=== PATIENT | male | born 1975 | race African-American/Black ===

== ENCOUNTER 2023-10-07 23:04 | Emergency (ER) | payer OTHER, SELFPAY ==
--- NOTE | ~2023-10-07 | CT_ITS ---
EXAMINATION: CT soft tissue neck w con DATE: 10/08/2023 00:32 INDICATION: Evaluate for abscess. Neck pain. TECHNIQUE: Computed tomography (CT) of the neck was performed with 75 cc Omnipaque 350 intravenous co ntrast. The dose-length product was 554.34 mGy-cm. Automated exposure control and iterative reconstru ction technique were employed. COMPARISON: None FINDINGS: Lung bases are unremarkable. No lymphadenopathy. No evidence for abscess. Mucosal and parap haryngeal spaces are normal. Thyroid gland is normal. No abnormality of the nasopharynx or hypopharyn x. No airway narrowing. Moderate cervical spondylosis. No intracranial abnormality is seen. Mildly pr ominent submental lymph nodes, likely reactive. IMPRESSION: 1. No acute abnormality of the neck soft tissues. No evidence for abscess or airway narrowing. Reviewed, dictated and finalized at location A. IMPRESSION: 1. No acute abnormality of the neck soft tissues. No evidence for abscess or ai rway narrowing.
[2023-10-07 23:09] VITALS: BP 167/76; PULSE 77; RESP 19; TEMP 36.4; O2SAT 99
--- NOTE | 2023-10-07 23:37 | ED.GENADULT ---
HPI - General Adult General Chief complaint: Unspecified Stated complaint: not feeling good , trouble swallowing for 3 days Time Seen by Provider: 10/07/23 23:24 History of Present Illness HPI narrative: patient 48-year-old gentleman presents emergency department with chief complaint of sore throat. The patient reports that but had some difficulty with swallowing for the last several days and has a fullness feeling in his throat particularly when he is laying down patient reports he has been seen by his primary care provider and was started on amoxicillin the patient states that it has not gotten better. The patient reports that he is still able to handle his oral secretions denies stridor Related Data Allergies Allergy/AdvReac Type Severity Reaction Status Date / Time shellfish derived Allergy Anaphylaxis Verified 10/07/23 23:57 Review of Systems Review of Systems: A 10 system review of systems was completed on the patient and is negative except for what is stated in the HPI. Nursing and ancillary documentation was reviewed. Exam Narrative: GENERAL: Well-appearing, well-nourished, and in no acute distress. HEAD: Normocephalic, atraumatic. EYES: PERRLA and EOMI. ENT: Nares clear, no rhinorrhea or epistaxis. Mucous membranes moist. NECK: Supple. CHEST: Clear to auscultation. No respiratory distress. HEART: Regular rate and rhythm. No murmur heard. Normal peripheral pulses. ABDOMEN: Soft, nontender, nondistended, normal active bowel sounds. EXTREMITIES: Normal range of motion. No edema. SKIN: Warm, dry, no rash. NEURO: No focal deficits. Alert and oriented x3. PSYCH: Normal mood and affect. Course Vital Signs Vital signs: Vital Signs Temperature 36.4 C L 10/07/23 23:09 Pulse Rate 77 10/07/23 23:09 Respiratory Rate 19 10/07/23 23:09 Blood Pressure 167/76 H 10/07/23 23:09 Pulse Oximetry 99 10/07/23 23:09 Oxygen Delivery Room Air 10/07/23 23:09 Temperature 36.4 C L 10/07/23 23:09 Pulse Rate 77 10/07/23 23:09 Respiratory Rate 19 10/07/23 23:09 Blood Pressure 167/76 H 10/07/23 23:09 Pulse Oximetry 99 10/07/23 23:09 Oxygen Delivery Room Air 10/07/23 23:09 Medical Decision Making [facility] Narrative Medical decision making narrative: Differential diagnosis includes pharyngitis, retropharyngeal abscess, esophageal obstruction strep was negative laboratory studies were within normal limits. CT scan of the soft tissues of the neck showed no acute abnormality the patient was given a dose Decadron in the emergency department and discharged home on a pulse steroids Vital Signs Vital Signs: Vital Signs Temperature 36.4 C L 10/07/23 23:09 Pulse Rate 77 10/07/23 23:09 Respiratory Rate 19 10/07/23 23:09 Blood Pressure 167/76 H 10/07/23 23:09 Pulse Oximetry 99 10/07/23 23:09 Oxygen Delivery Room Air 10/07/23 23:09 Temperature 36.4 C L 10/07/23 23:09 Pulse Rate 77 10/07/23 23:09 Respiratory Rate 19 10/07/23 23:09 Blood Pressure 167/76 H 10/07/23 23:09 Pulse Oximetry 99 10/07/23 23:09 Oxygen Delivery Room Air 10/07/23 23:09 Lab Data 10/07/23 23:49 10/07/23 23:50 Labs: Lab Results 10/07/23 10/07/23 10/07/23 Range/Units 23:48 23:49 23:50 WBC 4.4 L (4.5-10.0) K/mm3 RBC 5.59 (4.6-6.20) M/mm3 Hgb 16.3 (14.0-18.0) g/dL Hct 47.9 (42.0-52.0) % MCV 85.7 (80-100) fl MCH 29.2 (26-34) pg MCHC 34.0 (32-36) g/dl RDW 12.9 (11.5-14.5) % Plt Count 255 (150-375) k/mm3 MPV 9.9 (7.4-10.4) fl Immature Gran % (Auto) 0.2 (0-0.5) % Neut % (Auto) 54.5 (45.5-73.1) % Lymph % (Auto) 34.9 (18.3-44.2) % Nicol[place] % (Auto) 9.3 H (2.6-8.5) % Eos % (Auto) 0.9 (0-4.4) % Baso % (Auto) 0.2 (0.2-1.2) % Lymph # (Auto) 1.53 (0.9-3.2) K/mm3 Nicol[place] # (Auto) 0.4 (0.1-0.6) K/mm3 Eos # (Auto) 0.0 (0-0.3) K/mm3 Baso # (Auto) 0.0
[2023-10-07 23:55] LABS: Basophils Percent Auto 0.2 % (0.2-1.2); Eosinophils Percent Auto 0.9 % (0-4.4); Hematocrit 47.9 % (42.0-52.0); Hemoglobin 16.3 g/dL (14.0-18.0); Immature Granulocyte Absolute 0.01 K/mm3 (0.00-0.031); Immature Granulocyte Percent A 0.2 % (0-0.5); Lymphocytes Absolute Auto 1.53 K/mm3 (0.9-3.2); Lymphocytes Percent Auto 34.9 % (18.3-44.2); Mean Corpuscular Hemoglobin 29.2 pg (26-34); Mean Corpuscular Volume 85.7 fl (80-100); Mean Platelet Volume 9.9 fl (7.4-10.4); Monocytes Absolute Auto 0.4 K/mm3 (0.1-0.6); Monocytes Percent Auto 9.3 % (2.6-8.5); Neutrophils Absolute Auto 2.4 K/mm3 (1.3-6.7); Neutrophils Percent Auto 54.5 % (45.5-73.1); Platelet Count Result 255 k/mm3 (150-375); Red Blood Count 5.59 M/mm3 (4.6-6.20); Red Cell Distribution Width 12.9 % (11.5-14.5); White Blood Count 4.4 K/mm3 (4.5-10.0)
[2023-10-08 00:06] LABS: Alanine Aminotransferase 16 U/L (6-50); Albumin Level 4.8 g/dL (3.5-5.1); Alkaline Phosphatase 70 U/L (38-126); Anion Gap 10 mmol/L (4-12); Aspartate Amino Transferase 26 U/L (17-59); Bilirubin,Total 1.1 mg/dL (0.2-1.3); Blood Urea Nitrogen 17 mg/dL (9-20); Calcium 9.8 mg/dL (8.4-10.2); Carbon Dioxide 22 mmol/L (22-30); Chloride 109 mmol/L (98-107); Estimated CRCL calculation 77 ml/min; Estimated Glomerular Filt Rate > 60; Glucose 89 mg/dL (65-110); Potassium 3.7 mmol/L (3.4-5.0); Sodium 141 mmol/L (137-145)
[2023-10-08 00:19] LABS: Strep Group A RT-PCR NOT DETECTED (Negative)
[2023-10-08 00:30] LABS: Influenza A QL RT-PCR Negative (Negative); Influenza B QL RT-PCR Negative (Negative); RSV RNA, RT-PCR Negative (Negative); SARS-CoV-2 RNA PCR Negative (Negative)
[2023-10-08] MEDS: dexAMETHasone SOD PHOS INJ 10 MG/ML 1 ML VIAL IV PUSH (01:49)
[2023-10-08 01:55] VITALS: BP 135/74; PULSE 57; RESP 15; O2SAT 100
== END 2023-10-08 01:57 | disposition home or self-care (01) ==
PROVIDERS: Emergency Provider Emergency Medicine
DX: J02.9 Acute pharyngitis, unspecified (principal); Z20.822 Contact with and (suspected) exposure to COVID-19
CPT/HCPCS: 36415; 70491; 80053; 85025; 87637; 87651; 96374; 99284; J1100; Q9967

== ENCOUNTER 2023-10-08 20:39 | Emergency (ER) | payer OTHER, SELFPAY ==
[2023-10-08 20:54] VITALS: BP 154/89; PULSE 88; RESP 13; TEMP 37; O2SAT 98
--- NOTE | 2023-10-08 21:16 | ED.RECABL ---
HPI - Recheck/Abnormal Lab/Rx General Chief Complaint: Recheck/Abnormal Lab/Rx Stated Complaint: HTN Source: patient Mode of arrival: ambulatory Limitations: no limitations History of Present Illness HPI narrative: This is a 48-year-old male who presents to the ED for chief complaint of high blood pressure. Reports that he has been taking his blood pressure intermittently home. He was worried because the top number was something like 150. He is here because he wants to make sure that he is not going to due to high blood pressure. Reports that he did have a little bit of shakiness and started steroids last night for sore throat. Denies any further complaints. Related Data Allergies Allergy/AdvReac Type Severity Reaction Status Date / Time shellfish derived Allergy Anaphylaxis Verified 10/07/23 23:57 Review of Systems Review of Systems: All systems as dictated in HPI Exam Narrative: GENERAL: Well-appearing, well-nourished, and in no acute distress. HEAD: Normocephalic, atraumatic. EYES: PERRLA and EOMI. ENT: Nares clear, no rhinorrhea or epistaxis. Mucous membranes moist. Oropharynx without tonsillar hypertrophy exudate or other lesions. NECK: Supple. No adenopathy or masses. CHEST: No respiratory distress. Clear to auscultation. No wheezes rales or rhonchi HEART: Regular rate and rhythm. No murmur heard. Normal peripheral pulses. ABDOMEN: Soft, nontender, nondistended, normal active bowel sounds. MSK: Normal range of motion. No edema. SKIN: Warm, dry, no rash. NEURO: Alert and oriented x3. No focal deficits. PSYCH: Normal mood and affect. Course Vital Signs Vital signs: Vital Signs Temperature 98.6 F 10/08/23 20:54 Pulse Rate 88 10/08/23 20:54 Respiratory Rate 13 10/08/23 20:54 Blood Pressure 154/89 H 10/08/23 20:54 Pulse Oximetry 98 10/08/23 20:54 Oxygen Delivery Room Air 10/08/23 20:54 Temperature 98.6 F 10/08/23 20:54 Pulse Rate 88 10/08/23 20:54 Respiratory Rate 13 10/08/23 20:54 Blood Pressure 154/89 H 10/08/23 20:54 Pulse Oximetry 98 10/08/23 20:54 Oxygen Delivery Room Air 10/08/23 20:54 MDM - Recheck/Abnormal Lab/Rx MDM Narrative Medical decision making narrative: This is a 48-year-old male who presents to the ED for asymptomatic hypertension. Vitals show blood pressure 154/89. Patient was very concerned because he had blood pressures in 150s at home. He has not seen a PCP for his blood pressure before. Patient has no symptoms related to hypertension. PCP referral given for blood pressure management. Pt will be discharged in stable condition. Return precautions given and supportive measures discussed. Pt is understanding and agreeable with plan for discharge and follow-up with PCP. Discharge Plan Discharge Clinical Impression: Asymptomatic hypertension Patient Disposition: Home, Self-Care Condition: Stable Instructions: Antibiotic Form Additional Instructions: Your exam today is reassuring overall. Please follow-up closely with regular doctor regarding her blood pressures as you may need to get on medications. If you have any new or worsening symptoms please return to the ER for further evaluation. Prescriptions: No Action prednisone 20 mg tablet 40 mg PO DAILY 5 Days Qty: 10 0RF Follow-up/Referrals: Jas Costa MD [Physician] - UNKNOWN,DOCTOR [Primary Care Provider] - Time of Disposition: 21:17
== END 2023-10-08 21:33 | disposition home or self-care (01) ==
LOC: ANHED 21:24
PROVIDERS: Emergency Provider Physician Assistant
DX: I10 Essential (primary) hypertension (principal)
CPT/HCPCS: 99281

== ENCOUNTER 2024-01-14 03:29 | Emergency (ER) | payer OTHER, SELFPAY ==
[2024-01-14 03:33] VITALS: BP 137/91; PULSE 58; RESP 15; TEMP 36.6; O2SAT 99
[2024-01-14 03:52] VITALS: BP 139/81; PULSE 56; RESP 16; O2SAT 100
--- NOTE | 2024-01-14 03:52 | ECG_ITS ---
Test Date: 2024-01-14 04:04:55 Measurements Intervals [place] Rate: 57 P: 36 ME: 196 QRS: 9 QRSD: 100 T: 41 QT: 395 QTc: 385 Interpretive Statements SINUS BRADYCARDIA WITH SINUS ARRHYTHMIA BASELINE ARTIFACT- I, II, III, AVR, AVL, AVF, V1-V6 BORDERLINE ECG No previous ECG available for comparison Electronically Signed On 01-14-2024 07:56:49 CDT by Isaac Miller D.O.
[2024-01-14 04:32] VITALS: BP 134/87; PULSE 49; RESP 16; O2SAT 100
--- NOTE | 2024-01-14 04:45 | ED.GENADULT ---
HPI - General Adult General Chief complaint: Recheck/Abnormal Lab/Rx Stated complaint: low HR, unfilled psych meds Time Seen by Provider: 01/14/24 04:42 Source: patient and other (fiance) Mode of arrival: ambulatory Limitations: no limitations History of Present Illness HPI narrative: Patient presents with concern for and low heart rate as well as requesting refill of his medications. He states he has noted that his heart rate goes into the 40s when he is lying down. In addition he has a history of schizophrenia and states that he has been of his medication for 1 week. He tried to get refills but his prescriber told that it had been too long since he had been seen in the office because he had missed 2 appointments. He does have an appointment to see her, Meche Verduzco through [facility] in [place] on 01/16/2024. He states he takes trazodone 25 mg q.h.s. as well as clonazepam 1 mg b.i.d.. He states he is other medication for schizophrenia and is a brown pill but does not know what it is or the dose. His medications are typically filled and bill though inside the [facility] where there is a pharmacy but has also at times used a commercial pharmacy, however both are closed at this hour. Denies any chest pain shortness of breath. Related Data Allergies Allergy/AdvReac Type Severity Reaction Status Date / Time shellfish derived Allergy Anaphylaxis Verified 01/14/24 03:39 [facility] Past Medical History Medical History (Updated 01/18/24 @ 06:41 by Jackie Sears MD) Schizophrenia Social History Social History Social History: Engaged Exam Narrative: GENERAL: Well-appearing, well-nourished, and in no acute distress. HEAD: Normocephalic, atraumatic. EYES: Non injected, non icteric ENT: Nares clear, no rhinorrhea or epistaxis. NECK: Supple. CHEST: Speaking in full sentences. No respiratory distress. HEART: Bradycardic rate and rhythm. Consistently between 50-60 during HPI but without sinus pauses. ABDOMEN: Soft, nondistended. EXTREMITIES: Normal range of motion. No edema. SKIN: Warm, dry, no rash. NEURO: No focal deficits. Alert and oriented x3. PSYCH: Normal mood and affect. Course Vital Signs Vital signs: Vital Signs Temperature 98 F 01/14/24 03:33 Pulse Rate 58 L 01/14/24 03:33 Respiratory Rate 15 01/14/24 03:33 Blood Pressure 137/91 H 01/14/24 03:33 Pulse Oximetry 99 01/14/24 03:33 Oxygen Delivery Room Air 01/14/24 03:33 Temperature 98 F 01/14/24 03:33 Pulse Rate 49 L 01/14/24 04:32 Respiratory Rate 16 01/14/24 04:32 Blood Pressure 134/87 01/14/24 04:32 Pulse Oximetry 100 01/14/24 04:32 Oxygen Delivery Room Air 01/14/24 03:33 Medical Decision Making MDM Narrative Medical decision making narrative: Patient presents with concern for heart rate which he has noticed has gone to 40s especially when lying down. He is also concerned because he has been out of his psych medications including medication for schizophrenia approximately 1 week. He does have an appointment coming with his provider Meche Verduzco through [facility] in [place] on 01/16/24. In the emergency department he is afebrile with acceptable vital signs though with mild bradycardia and slight elevation in diastolic blood pressure. Patient is otherwise well-appearing. We discussed that he otherwise appears asymptomatic from his bradycardia and we discussed a general overview of asymptomatic bradycardia as well as broad strokes of the sympathetic ( fight or flight ) versus parasympathetic ( rest and digest ) nervous system. In regards to refilling his medications, patient can state his trazodone and clonazepam doses. Did spend considerable time trying to determine what his schizophrenia medication might be based on listing names as well as attempting to correlate these online with what might come as a brown pill. However, this remains unclear.
== END 2024-01-14 05:23 | disposition home or self-care (01) ==
PROVIDERS: Emergency Provider Student in an Organized Health Care Education/Training Program
DX: R00.1 Bradycardia, unspecified (principal); F20.9 Schizophrenia, unspecified; Z76.0 Encounter for issue of repeat prescription
CPT/HCPCS: 93005; 99283

== ENCOUNTER 2024-09-11 21:30 | Emergency (ER) | payer OTHER, SELFPAY ==
--- OUTSIDE RECORDS SUMMARY | 2024-09-11 21:33 | XMS_ITS | Clinical Summary ---
Author Organization [facility] Address [address] [place] [id number] Care Team Providers Care Food Photographer Name Role Phone Unknown, Notinfile Primary Care Provider Unavail able Allergies No known active allergies Medications albuterol HFA (PROVENTIL HFA,VENTOLIN HFA,PROAIR HFA) 90 mcg/actuation inhaler Inhale 2 puffs every 4 (four) hours as needed for wheezing or shortness of breath 18 g 4 10/11/19 25 Active hydrOXYzine (ATARAX) 25 mg tablet Take 1 tablet (25 mg total) by mouth every 6 (six) hours 20 tablet 4 Active albuterol HFA (PROVENTIL HFA,VENTOLIN HFA,PROAIR HFA) 90 mcg/actuation inhaler Inhale 2 puffs every 4 (four) hours as needed for wheezing 6.7 g 4 10/14/19 25 Active Medical History Medical History Date Comments COPD (chronic obstructive pulmonary disease) (HC C) Social History Tobacco Use Types Packs/Day Years Used Date Smoking Tobacco: Never Assessed Personal Safety Answer Date Recorded Have you ever been in or are you currently in a harmful physical or emotional relationship or is someone making you feel afraid or unsafe? 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 Gender Identity Not on file Sexual Orientation Not on file Obstetrics History Last Filed Vital Signs Vital Sign Reading Time Taken Comments Blood Pressure 128/92 10/14/2023 12:00 AM CDT Pulse 55 10/14/2023 12:00 AM CDT Temperature 36.8 C (98.3 F) 10/13/2023 9:49 PM CDT Respiratory Rate 18 10/14/2023 12:00 AM CDT Oxygen Saturation 96% 10/14/2023 12:00 AM CDT Inhaled Oxygen Concentration - - Weight 87.1 kg (192 lb 0.3 oz) 10/13/2023 9:49 P M CDT Height 172.7 cm (5' 8 ) 10/10/2023 11:26 PM CDT Body Mass Index 29.2 10/10/2023 11:26 PM CDT Plan of Treatment Health Maintenance Due Date Last Done Comments Colon Cancer Screening-Colonoscopy 1975 Depression Screening 1975 Hepatitis C Screening 1975 Prostate Cancer Screening-PSA 1975 DTaP/Tdap/Td Vaccine (1 - Tdap) 02/22/1992 2 Hepatitis B Screening 1993 Regular Well Visit/Exam 18-64 1993 Pneumococcal vaccine <65 (1 of 2 - PCV) 1994 Influenza Vaccine (#1) 2024 Insurance Care Teams Food Photographer Relationship Specialty Start Date End Date Unknown, Notinfile PCP - General 10/13/23
--- OUTSIDE RECORDS SUMMARY | 2024-09-11 21:33 | XMS_ITS ---
Author Organization [facility] Address [address] [place] [address] Care Team Providers Care Hot Billet Shear Operator Name Role Phone Meche Verduzco Primary Care Provider Allergies Allergen (clinical drug ingredient) Drug/Non Drug Allergy documented on EMR Reaction Allergy Type Onset Date Status Shellfish (FN) shell fish (uncoded) Unknown Allergy Active lamotrigine Lamotrigine rash Drug Allergy 03/26/2024 Ac tive REASON FOR VISIT 4 week F/U Medications Medication SIG (Take, Route, Frequency, Duration) Notes Start Date End Date Status clonazePAM 1 MG 1 tablet daily Orally Once a day for 30 days As needed for anxious/anger distress Active Invega Sustenna 117 MG/0.75ML as directed Intramuscular once for 30 days Active Invega Sustenna 234 MG/1.5ML 1.5 mL Intramuscular once for 30 days Active Paliperidone ER 6 MG 1 tablet in the morning Orally Once a day for 30 days compliance packs please Active traZODone HCl 50 MG 1 tablet at bedtime as needed Orally Once a day for 30 days Active clonazePAM 1 MG 1 tablet as needed for anxious distress Orally Once a day for 30 days 01/26/2023 Unknown traZODone HCl 50 MG 1 tablet at bedtime as needed Orally Once a day for 30 days compliance packs Unknown Benztropine Mesylate 1 MG 1 tablet at bedtime Orally Once a day for 14 days continue with compliance packs and mail Unknown OXcarbazepine 600 MG 1 tablet Orally Twice a day for 30 days Not-Taking Amoxicillin-Pot Clavulanate 875-125 MG 1 tablet Orally every 12 hrs for 3 day(s) 03/04/2024 Active buPROPion HCl ER (XL) 150 MG 1 tablet in the morning Orally Once a day for 30 days Not-Taking Social History Sex Assigned At : Social History Observation Description Sex Assigned At Male Encounters Encounter Location Date Provider Diagnosis [facility] [address] [address] 08/05/2024 Meche Verduzco Plan Of Treatment Next Appt Details Provider Name:Meche Verduzco, 0 09/16/2024 08:40:00 AM, [address] [place], [address], Progress Notes * Edy VELASQUEZ RDOB: [birth year] (49 yo M)Acc No.[id number]:08/05/2024 UNLOCKED PROGRESS NOTE Patient: Edy BURGOS Provider: KAUSHAL Sol-MEME :1975 A ge:49 Y S ex:Male Date:08/05/2024 Address:[address] [place], [place] [id number] Subjective: * Chief Complaints: * 1 . 4 week F/U. * Medical History: P TSD, Anxiety disorder, Schizophrenia, arrythmia DX in 2012--no medications.. * Surgical History: Christy sosa Past Surgical History. * Hospitalization/Major Diagno stic Procedure: [facility] in [facility] for 2008. * Family History: F ather: , type II diabetes. M other: alive, hyperthyroidism, hypertension. 5 son(s) , 4 daughter(s) - healthy. . 1 son . brother by [place]. * Social History: P rimary Social History: L iving Arrangement L iving Arrangement: D ependent Living L iving with: P arent(s) Alcohol Use A lcohol Use Frequency: N ever Illicit Substance Usage I llicit Substance Usage: N o Employment Status E mployment Status: U nemployed * Medications: T aking Amoxicillin-Pot Clavulanate 875-125 MG Tablet 1 tablet Orally every 12 hrs , Taking clonazePAM 1 MG Tablet 1 tablet daily Orally Once a day As needed for anxious/anger distress, Taking Paliperidone ER 6 MG Tablet Extended Release 24 Hour 1 tablet in the morning Orally Once a day , Notes to Pharmacist: compliance packs please, Taking traZODone HCl 50 MG Tablet 1 tablet at bedtime as needed Orally Once a day , Taking Invega Sustenna 234 MG/1.5ML Suspension Prefilled Syringe 1.5 mL Intramuscular once , Taking Invega Sustenna 117 MG/0.75ML Suspension Prefilled Syringe as directed Intramuscular once , Not-Taking buPROPion HCl ER (XL) 150 MG Tablet Extended Release 24 Hour 1 tablet in the morning Orally Once a day , Not-Taking OXcarbazepine 600 MG Tablet 1 tablet Orally Twice a day , Unknown traZODone HCl 50 MG Tablet 1 tablet at bedtime as needed Orally Once a day , Notes to Pharmacist: compliance packs, Unknown Benztropine Mesylate 1 MG Tablet 1 tablet at bedtime Orally Once a day , Notes to Pharmacist: continue with compliance packs and mail, Unknown clonazePAM 1 MG Tablet 1 tablet as needed for anxious distress Orally Once a day * Allergies: s hell fish, Lamotrigine: rash - Onset Date 03/26/2024. Objective: * Vitals: Assessment: Plan: * Treatment: * * Electronic signature of Meche Verduzco , [phone] on 09/11/2024 at 09:33 PM CDT Sign off status: Pending * Provider: KAUSHAL Sol- Date: 0 08/05/2024 Generated for Daja herbert/Nicole/George on: 0 09/11/2024 09:33 PM CDT
--- OUTSIDE RECORDS SUMMARY | 2024-09-11 21:34 | XMS_ITS | Clinical Summary ---
Author Organization [facility] Address [address] [place] [address] Care Team Providers Care Combination Window Installer Name Role Phone Oral De Los Santos Primary Care Provider [phone] Patrick Lara MD Unavailable Allergies Active Allergy Reactions Criticality Noted Date Comments Shellfish-Derived Products Anaphylaxis 08/21/19 25 Medications albuterol 108 (90 Base) MCG/ACT Aerosol Solution 1-2 Puffs every 4 hours as needed for Cough. 5 Active buPROPion (WELLBUTRIN) 150 MG XL tablet Take 150 mg by mouth daily. 5 Active clonazePAM (KlonoPIN) 1 MG Tablet Take 1 mg by mouth 2 times daily. Take one daily and one as needed for anxiety 5 Active traZODone (DESYREL) 50 MG Tablet Take 50 mg by mouth nightly as needed for Sleep. 5 Active Symbicort 160-4.5 MCG/ACT Aerosol take 2 Puffs by inhalation 2 times daily. 5 Active OXcarbazepine (TRILEPTAL) 300 MG Tablet 4 Active Paliperidone (INVEGA) 6 MG TABLET SR 24 HR Take 6 mg by mouth daily. 5 Active OXcarbazepine (TRILEPTAL) 600 MG Tablet 5 Active haloperidol (HALDOL) 1 MG Tablet Take 1 mg by mouth every 6 hours. Active lamoTRIgine (LaMICtal) 25 MG Tablet Take 25 mg by mouth daily. Active hydrOXYzine (ATARAX) 25 MG Tablet Take 25 mg by mouth every 6 hours as needed for Anxiety. 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 [facility] [address] [place] [address] Patrick Lara MD Palpitations (Primary Dx); Labile blood pressure Discharge Disposition: Discharged to home or Selfcare 08/21/2024 [facility] [place] [address] Patrick Lara MD from Last 3 Months Family History Medical History Relation Name Comments Heart Disease Brother Hypertension Brother Heart Disease Mother Hypertension Mother Hypertension Sister Relation Name Status Comments Brother Mother Sister Social History Tobacco Use Types Packs/Day Years Used Date Smoking Tobacco: Every Day Cigarettes Passive Smoke Exposure: Current Tobacco Cessation:Ready to Q uit: Not Asked; Counseling Given: Not Answered Alcohol Use Standard Drinks/Week Comments Not Currently 0 (1 standard drink = 0.6 oz pur e alcohol) Sex and Gender Information Value Date Recorded Sex Assigned at Not on file Legal Sex Male 11:13 AM BUNCH BREAKER MACHINE OPERATOR Gender Identity Not on file Sexual Orientation Not on file Last Filed Vital Signs Vital Sign Reading Time Taken Comments Blood Pressure 122/78 08/21/2024 10:17 AM BUNCH BREAKER MACHINE OPERATOR Pulse 67 08/21/2024 10:17 AM BUNCH BREAKER MACHINE OPERATOR Temperature 36.1 C (96.9 F) 08/21/2024 10:17 AM BUNCH BREAKER MACHINE OPERATOR Respiratory Rate 14 08/21/2024 10:17 AM BUNCH BREAKER MACHINE OPERATOR Oxygen Saturation 100% 08/21/2024 10:17 AM BUNCH BREAKER MACHINE OPERATOR Inhaled Oxygen Concentration - - Weight 95.7 kg (211 lb) 08/21/2024 10:17 AM BUNCH BREAKER MACHINE OPERATOR Height 172.7 cm (5' 8 ) 08/21/2024 10:17 AM BUNCH BREAKER MACHINE OPERATOR Body Mass Index 32.08 08/21/2024 10:17 AM BUNCH BREAKER MACHINE OPERATOR Plan of Treatment Upcoming Encounters Date Type Department Care Team (Late st Contact Info) Description 10/03/2024 1:00 PM CDT [facility] [address] [place] [address] [facility] [address] [address] Discharge Disposition: Discharged to home or Selfcare 10/03/2024 2:00 PM CDT Appointment [facility] Services [address] [place] [address] Patrick Lara MD [address] [address] Discharge Disposition: Discharged to home or Selfcare 08/22/2025 9:30 AM BUNCH BREAKER MACHINE OPERATOR Office Visit [facility] - Cardiology [facility] [address] [place] [address] Rossy Koehler, FILLETER, SHOVEL ENGINEER [address] [place] [address] Health Maintenance Due Date Last Done Comments Hepatitis C Virus (HCV) Screening 1975 Hepatitis B Immunization (1 of 3 - 19+ 3-dose series) 1994 Pneumococcal Immunization Co mbined (1 of 2 - PCV) 1994 Colonoscopy 2020 Colorectal Cancer Screening 2020 SARS-COV-2 Immunization ( - season) 2024 Respiratory Syncytial Virus (RSV) Immunization (Adult) (1 - 1-dose 75+ series) 2050 TdaP Immunization Completed 06/19/2022 Influenza Immunization Completed 04/03/2024 Meningococcal Immunization (ACWY) Aged Out No longer eligible based on patient's age to complete this topic Rotavirus Immunization Aged Out No lo nger eligible based on patient's age to complete this topic Procedures Procedure Name Priority Date/Time Associated Diagnosis Comments ELECTROCARDIOGRAM, COMPLETE Today 08/21/2024 Palpitations from Last 3 Months Results * ELECTROCARDIOGRAM, COMPLETE (08/21/2024) us Patrick Lara MD IMG ECG ORDERAB LES Final Result from Last 3 Months Insurance MEDICAID [employer] Care Teams Combination Window Installer Relationship Specialty Start Date End Date Oral De Los Santos PAC [address] [place] [address] PCP - General Physician Flight Communications Officer 08/21/24 Patrick Lara MD [address] [address] Consulting Physician Cardiology 08/21/24
--- OUTSIDE RECORDS SUMMARY | 2024-09-11 21:34 | XMS_ITS ---
Author Organization [facility] Address [address] [place] [address] Care Team Providers Care Detail Manager Name Role Phone Meche Verduzco Primary Care Provider REASON FOR VISIT Needs call back from office Social History Sex Assigned At : Social History Observation Description Sex Assigned At Male Encounters Encounter Location Date Provider Diagnosis [address] [address] 09/02/2024 Meche Verduzco Plan Of Treatment Next Appt Details Provider Name:Meche Verduzco, 0 09/16/2024 08:40:00 AM, [address] [place], [address], Progress Notes * Edy VELASQUEZ RDOB: [birth year] (49 yo M)Acc No.[id number]:09/02/2024 Patient: Adebayo JOHNEdy :1975 A ge:49 Y S ex:Male Address:[facility] [place] [address] * true * Date: Generated for Printi ng/Faxing/eTransmitting on: 0 09/11/2024 09:33 PM CDT
--- OUTSIDE RECORDS SUMMARY | 2024-09-11 21:34 | XMS_ITS | Referral Summary ---
Author Organization [facility] Address [facility] [place] [address] Care Team Providers Care Mounter Sousaphones Name Role Phone Unknown, Notinfile Primary Care [...] wheezing 6.7 g 4 10/14/19 25 Active Social History Tobacco Use Types Packs/Day Years Used Date Smoking Tobacco: Never Assessed Personal Safety Answer Date Recorded Have you ever been in or are you currently in a harmful physical or emotional relationship or is someone making you feel afraid or unsafe? Denies 10/13/2023 Sex and Gender Information Value Date Recorded Sex Assigned at Not on file Legal Sex Male 6:12 AM SAUSAGE CANNER Gender Identity Not on file Sexual Orientation [...] 10/10/2023 11:26 PM CDT Plan of Treatment Not on file Insurance Care Teams Mounter Sousaphones Relationship Specialty Start Date End Date Unknown, Notinfile PCP - General 10/13/23
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
--- OUTSIDE RECORDS SUMMARY | 2024-09-11 21:34 | XMS_ITS | CONTINUITY OF CARE DOCUMENT ---
Author Name kemi mcmullen Address Unknown Organization [facility] Address [address] [place] [address] Phone [phone] Care Team Providers Care Briar Shop Supervisor Name Role Phone Karma Mabry MD Unavailable Karma Mabry MD Unavailable [phone] INSURANCE PROVIDERS Payer name Policy type / Coverage type Rachel red alliance party ID [employer] MEDICAID (2) Medicaid [id number]
--- OUTSIDE RECORDS SUMMARY | 2024-09-11 21:34 | XMS_ITS | Clinical Summary ---
Author Organization [facility] Address [address] [place] [id number] Care Team Providers Care Motor Vehicle Escort Driver Name Role Phone None, Provider Primary Care Provider Unavaila ble Allergies Active Allergy Reactions Criticality Noted Date Comments Shellfish-Derived Products Anaphylaxis High 10/17/19 24 Medications No known medications Social History Tobacco Use Types Packs/Day Years Used Date Smoking Tobacco: Never Smokeless Tobacco: Never Tobacco Cessation:Counseling Given: Not Answered Alcohol Use Standard Drinks/Week Comments Never 0 (1 standard drink = 0.6 oz pur e alcohol) Sex and Gender Information Value Date Recorded Sex Assigned at Not on file Legal Sex Male 7:20 PM CDT Gender Identity Not on file Sexual Orientation Not on file Last Filed Vital Signs Vital Sign Reading Time Taken Comments Blood Pressure 140/95 10/17/2023 4:29 AM CDT Pulse 74 10/17/2023 4:15 AM CDT Temperature 36.2 C (97.2 F) 10/17/2023 4:15 AM CDT Respiratory Rate 18 10/17/2023 4:29 AM CDT Oxygen Saturation 99% 10/17/2023 4:15 AM CDT Inhaled Oxygen Concentration - - Weight 81.6 kg (180 lb) 10/17/2023 4:15 AM CDT Height 172.7 cm (5' 8 ) 10/17/2023 4:15 AM CDT Body Mass Index 27.37 10/17/2023 4:15 AM CDT Plan of Treatment Health Maintenance Due Date Last Done Comments Colorectal Cancer Screening Colonoscopy (10 Years) 1975 Annual Physical 1978 DTaP, Tdap and Td Vaccines ( 2 - Tdap) 02/22/1992 02/21/1992 Hepatitis C 1993 Hepatitis B Vaccines (1 of 3 - 19+ 3-dose series) 1994 COVID-19 Vaccine (2023-2 5 season) 2024 Influenza Adult (#1) 2024 Meningococcal B Vaccine Aged Out No l onger eligible based on patient's age to complete this topic Meningococcal Vaccine Aged Out No deon destinee eligible based on patient's age to complete this topic Pneumococcal Vaccine: Pediat rics (0 to 5 Years) and At-Risk Patients (6 to 64 Years) Aged Out No longer eligi ble based on patient's age to complete this topic RSV Immunizations Under 20 Months Aged Out No longer eligible based on patient's age to complete this topic Insurance Care Teams Motor Vehicle Escort Driver Relationship Specialty Start Date End Date None, Provider, MD PCP - General UNKNOWN PHYSICIAN SPECIALTY 10/17/23
[2024-09-11 21:35] VITALS: BP 139/90; PULSE 76; RESP 15; O2SAT 100
--- NOTE | 2024-09-11 21:47 | PC.NURSE ---
This RN walked pt back to room 10 and asked him to change into green scrubs, pt asked why and this RN explained because due to his answers with the [place] questions he is high risk for suicide. Pt tells this RN I'm about to wig out if you make me change my clothes, I'm having a mental health problem Pt then states he is not having suicidal thoughts currently at this moment. Pt also states he doesn't remember saying that he was having these thoughts. Pt states he has just been using the fork to harm himself, not to try and kill himself. Pt again states he is not having suicidal or homicidal thoughts right now.
--- NOTE | 2024-09-11 22:24 | PC.NURSE ---
Pt. speaking to ABDOULAYE Gallardo at bedside. Pt. states he does have auditory hallucinations. Last hallucination was x2 days ago. Denies current thoughts of SI/HI.
--- NOTE | 2024-09-11 22:30 | PC.NURSE ---
Per Paulina STANFORD and ROBLES Dietz, room does not need to be cleared out at this time d/t pt. having no risk of suicide at this time. Pt. at bedside. Pt. will let staff know if thoughts of SI return.
--- NOTE | 2024-09-11 22:31 | ED_ITS ---
HPI - Psych General Chief Complaint: Psychiatric Symptoms Stated Complaint: Out of Psych meds x 3 days-having withdrawal s/sx Time Seen by Provider: 09/11/24 22:09 History of Present Illness HPI Narrative: 49-year-old male with a reported history of bipolar disorder, PTSD and schizophrenia presents emergency department with at bedside due to concerns for clonazepam withdrawal. Patient takes clonazepam 1 mg b.i.d. and ran out of his medication 3 days ago. Since then he has been scratching himself with a fork throughout his chest, abdomen and upper extremities. When asked why he has been scratching himself with a fork, he states because he ran out of his clonazepam and when he scratches himself he feels relieved. States he thinks he would stop if he had a refill of his clonazepam. He denies suicidal intent. He is also endorsing headache and increased sleepiness which he is attributing to clonazepam withdrawal. Unfortunately his manager psychology at [facility], Meche Verduzco, is reportedly on vacation and is unable to refill his clonazepam. He does have appointment scheduled with her for this upcoming Monday. He notes that he had thoughts of SI 2 days ago with no specific plan. He does admit to chronic auditory hallucinations that tell him to hurt himself and other people, again no specific plans. States he has been taking the remainder of his medications as prescribed which includes trazodone 50 mg p.r.n., citalopram 5 mg daily, oxcarbazepine 60 mg daily and paliperidone 6mg daily. Patient denies access to weapons or firearms. He admits to inpatient psych hospitalization in his 20s due to attempted SI but has not had any inpatient admissions since. He denies current thoughts of SI or HI. Reports Tdap is up-to-date. Related Data Allergies Allergy/AdvReac Type Severity Reaction Status Date / Time shellfish derived Allergy Anaphylaxis Verified 09/11/24 21:31 Review of Systems 2 Review of Systems: All systems reviewed & are unremarkable except as noted in HPI and below PMFSH Past Medical History Medical History Schizophrenia Social History Social History Social History: Engaged Exam 2 Narrative: GENERAL: Well-appearing, well-nourished, and in no acute distress. HEAD: Normocephalic, atraumatic. EYES: EOMI. ENT: Nares clear, no rhinorrhea or epistaxis. Mucous membranes moist. NECK: Supple. CHEST: Clear to auscultation. No respiratory distress. HEART: Regular rate and rhythm. No murmur heard. Normal peripheral pulses. ABDOMEN: Soft, nontender, nondistended, normal active bowel sounds. EXTREMITIES: Normal range of motion. No edema. SKIN: Superficial scratches throughout the bilateral upper extremities, chest and abdomen. All wounds healing well with no signs of secondary bacterial infection, no bleeding, deep structures or foreign bodies visualized NEURO: No focal deficits. Alert and oriented x3 PSYCH: Resting comfortably in exam bed, pleasant and conversational. Not responding to internal stimuli on exam. Denies current SI or HI Course Vital Signs Vital signs: Vital Signs Pulse Rate 76 09/11/24 21:35 Respiratory Rate 15 09/11/24 21:35 Blood Pressure 139/90 09/11/24 21:35 Pulse Oximetry 100 09/11/24 21:35 Oxygen Delivery Room Air 09/11/24 21:35 Pulse Rate 76 09/11/24 21:35 Respiratory Rate 15 09/11/24 21:35 Blood Pressure 139/90 09/11/24 21:35 Pulse Oximetry 100 09/11/24 21:35 Oxygen Delivery Room Air 09/11/24 21:35 MDM - Psych MDM Narrative Medical decision making narrative: 49-year-old male with reported history of schizophrenia, bipolar disorder PTSD presents to the emergency department with concerns for clonazepam withdrawal. Patient ran out of his 1mg clonazepam b.i.d. 3 days ago and since then has been scratching himself a fork. He states he has been scratching himself with a fork because he feels relief when doing so, but denies desire to kill himself. He does admit to suicidal thoughts 2 days ago with no plan. Denies suicidal thoughts since. He admits to chronic auditory hallucinations that tell him to harm himself and others, but again denies specific plan. Vitals are stable. Patient is resting comfortably in the exam bed, pleasant and conversational, denies current SI or HI, not responding to internal stimuli. He does have superficial scratches throughout his bilateral upper extremity and torso. No evidence of secondary bacterial infections. Wounds healing well. Tdap is reportedly up-to-date. Will obtain psychiatric lab work and have crisis consult given recent reported suicidal thoughts and auditory hallucinations, however this does seem to be chronic per the patient. He is currently low risk on the [place] Suicide Scale and denies current SI and HI. He does not appear to be in active psychosis. The patient is medically cleared for Crisis consult. Pt eloped out of the department prior to Crisis evaluation. Lab Data 09/11/24 22:47 09/11/24 22:47 Labs: Lab Results 09/11/24 09/11/24 09/11/24 Range/Units 22:47 23:03 23:04 WBC 4.2 L (4.5-10.0) K/mm3 RBC 4.71 (4.6-6.20) M/mm3 Hgb 14.2 (14.0-18.0) g/dL Hct 41.2 L (42.0-52.0) % MCV 87.5 (80-100) fl MCH 30.1 (26-34) pg MCHC 34.5 (32-36) g/dl RDW 13.1 (11.5-14.5) % Plt Count 230 (150-375) k/mm3 MPV 10.3 (7.4-10.4) fl Immature Gran % (Auto) 0.2 (0-0.5) % Neut % (Auto) 40.0 L (45.5-73.1) % Lymph % (Auto) 46.0 H (18.3-44.2) % [place] % (Auto) 8.1 (2.6-8.5) % Eos % (Auto) 5.0 H (0-4.4) % Baso % (Auto) 0.7 (0.2-1.2) % Lymph # (Auto) 1.94 (0.9-3.2) K/mm3 [place] # (Auto) 0.3 (0.1-0.6) K/mm3 Eos # (Auto) 0.2 (0-0.3) K/mm3 Baso # (Auto) 0.0 (0.0-0.1) K/mm3 Abs Immat Gran (auto) 0.01 (0.00-0.031) K/mm3 Absolute Neuts (auto) 1.7 (1.3-6.7) K/mm3 Absolute Nucleated RBC 0.000 (0.0-0.012) K/mm3 Nucleated RBC % 0.0 (0.0-0.2) % Sodium 139 (137-145) mmol/L Potassium 3.9 (3.4-5.0) mmol/L Chloride 109 H (98-107) mmol/L Carbon Dioxide 21 L (22-30) mmol/L Anion Gap 9 (4-12) mmol/L BUN 16 (9-20) mg/dL Creatinine 0.87 (0.7-1.3) mg/dL Estim Creat Clear Calc Not Reportable Estimated GFR > 60 (59 - ) Glucose 92 (65-110) mg/dL Calcium 8.9 (8.4-10.2) mg/dL Total Bilirubin 0.4 (0.2-1.3) mg/dL AST 24 (17-59) U/L ALT 24 (6-50) U/L Alkaline Phosphatase 122 (38-126) U/L Total Protein 7.0 (6.3-8.2) g/dL Albumin 4.0 (3.5-5.1) g/dL TSH 2.550 (0.465-4.680) uIU/mL Urine Color Yellow (Yellow) Urine Appearance Clear (Clear) Urine pH 5.5 (5.0-9.0) Ur Specific [place] 1.014 (1.001-1.035) Urine Protein Negative (Negative) mg/dL Urine Glucose (UA) Negative (Negative) mg/dL Urine Ketones Negative (Negative) mg/dL Ur Blood (Man) Negative (Negative) Urine Nitrate Negative (Negative) Urine Bilirubin Negative (Negative) Urine Urobilinogen 1.0 (<2.0) mg/dL Leukocyte Esterase Rfl Negative (Negative) SHARRI/UL Salicylates < 1.0 L (2-20) mg/dL Urine Opiates Screen Negative (Negative) Urine Methadone Screen Negative (Negative) Acetaminophen < 10 L (10-30) ug/mL Ur Barbiturates Screen Negative (Negative) Carbamazepine Pending Ur Phencyclidine Scrn Negative (Negative) Ur Amphetamine Screen Negative (Negative) U Benzodiazepines Scrn Negative (Negative) Urine Cocaine Screen Negative (Negative) U Cannabinoids Screen Negative (Negative) Ethyl Alcohol < 10 (<10) mg/dL SARS-CoV-2 RNA (RT-PCR) Negative (Negative) Discharge Plan Discharge Clinical Impression: Encounter for medication refill Schizophrenia Qualifiers: Schizophrenia type: unspecified Qualified Code(s): F20.9 - Schizophrenia, unspecified Patient Disposition: Elopement After Seen by Prov Patient Language: [place] Prescriptions: No Action prednisone 20 mg tablet 40 mg PO DAILY 5 Days Qty: 10 0RF clonazepam 1 mg tablet 1 mg PO BID Qty: 5 0RF clonazepam 1 mg tablet 1 mg PO BID Qty: 5 0RF trazodone 50 mg tablet 25 mg PO HS PRN (Reason: insomnia) Qty: 3 0RF Follow-up/Referrals: PHYSICIAN,[facility] [Non-Staff] -
--- OUTSIDE RECORDS SUMMARY | 2024-09-11 22:34 | XMS_ITS | Referral Summary ---
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
--- OUTSIDE RECORDS SUMMARY | 2024-09-11 22:34 | XMS_ITS | Patient Health Record ---
Author Organization [facility] Address [address] [place] [address] Care Team Providers Care Patient Services Clerk Name Role Phone Meche Verduzco Primary Care Provider Halina Wang Unavailable [phone] Redd Mathis Unavailable [phone] Allergies Allergen (clinical drug ingredient) Drug/Non Drug Allergy documented on EMR Reaction Allergy Type Onset Date Status Shellfish (FN) shell fish (uncoded) Unknown Allergy Active lamotrigine Lamotrigine rash Drug Allergy 03/26/2024 Ac tive Results Component Value Reference Range Notes 12 Panel Urine Drug Screen Reviewed date:11/06/2023 01:13:07 PM Interpretation: Performing Lab: Notes/Report: THC POS BRAD neg MOP (OPI) neg AMP neg MET neg BAR neg BZO neg MDMA neg MTD neg OXY neg PCP neg BUP neg 12 Panel Urine Drug Screen Reviewed date:06/20/2024 08:20:26 AM Interpretation: Performing Lab: Notes/Report: THC POS BRAD neg MOP (OPI) neg AMP neg MET neg BAR neg BZO POS MDMA neg MTD neg OXY neg PCP neg BUP neg Reason For Referral Reason Client open to thera py. Very paranoid and cautious. Had opportunity to engage with [facility] but could not due to paranoia but feels therapy would be helpful Diagnosis 1 Schizoaffective diso rder (F25.9) Referral Organization [facility] Referring Provider First Name Meche Referring Provider Last Name Dax Referring Provider Speciality Psychiatry Referred Provider Specialty Behavioral [facility] Clinical Notes , Behavioral Romana Medellin 02/05/2024 09:50:07 AM >Meche Verduzco asked me to mail the client a form stating the process of initiating therapy. Client previously did not want the health navigator in the appointment. Client already left the building. Mailed client the therapy information form. Referral Priority Routine Medications Medication SIG (Take, Route, Frequency, Duration) Notes Start Date End Date Status Paliperidone ER 6 MG 1 tablet in the morning Orally Once a day for 30 days compliance packs please Active OXcarbazepine 600 MG 1 tablet Orally Twice a day for 30 days Not-Taking traZODone HCl 50 MG 1 tablet at bedtime as needed Orally Once a day for 30 days Active Amoxicillin-Pot Clavulanate 875-125 MG 1 tablet Orally every 12 hrs for 3 day(s) 03/04/2024 Active Invega Sustenna 234 MG/1.5ML 1.5 mL Intramuscular once for 30 days Active traZODone HCl 50 MG 1 tablet at bedtime as needed Orally Once a day for 30 days compliance packs Unknown Invega Sustenna 117 MG/0.75ML as directed Intramuscular once for 30 days Active Escitalopram Oxalate 5 MG 1 tablet Orally Once a day for 30 days 08/19/2024 Active Benztropine Mesylate 1 MG 1 tablet at bedtime Orally Once a day for 14 days continue with compliance packs and mail Unknown clonazePAM 1 MG 1 tablet daily Orally Once a day for 30 days As needed for anxious/anger distress 08/19/2024 Active clonazePAM 1 MG 1 tablet as needed for anxious distress Orally Once a day for 30 days 01/26/2023 Unknown Social History Tobacco Use: Social History Observation Description Date Details (start date - stop date) Current Smoker NA - NA Sex Assigned At : Social History Observation Description Sex Assigned At Male Dont use, Tobacco Use/Smoking Question Answer Notes Are you a current smoker How many cigarettes a day do you smoke? 5 or les s Additional Findings: Tobacco User e-Cigarette PRAPARE Question Answer Notes Date Completed/Updated: 02/05/2024 What is your current housing situation? I have h ousing Are you worried about losing your housing? No What is the highest level of school that you have finished? High school diploma or GED In the past year, have you o r any family members you live with been unable to get any of the following when it was really needed? Check all that apply Medicine or any health care (medical, dental, mental health or vision) Has lack of transportation k ept you from medical appointments, meetings, work or from getting things needed for daily living? No How often do you see or talk to people that you care about and feel close to? (For example: talking to friends on the phone, visiting friends or family, going to pentecostalism or club meetings) 3 to 5 times a week How stressed are you? Stress is when someone feels tense, nervous, anxious, or can\t sleep at night because their mind is troubled A little bit In the past year have you sp ent more than 2 nights in a row in a prison, nursing home, skilled nursing center, or juvenile correctional facility? No PRAPARE Score: 5 Tobacco Control (Standard) Question Answer Notes Tobacco use: Current every day smoker Additional Findings: Tobacco user e-cigarette Problems Problem Type SNOMED Code ICD Code Onset Dates Problem Status W/U Status Risk Notes Problem Tobacco user (574526606) Nicotine dependence, unspecified, uncomplicated (F17.200) Active confirmed Problem Mood disorder (76345032) Mood disorder (F39) Active confirmed Problem Schizoaffective disorder (11468784) Schizoaffective disorder (F25.9) Active confirmed Vital Signs Heart Rate 76 /min 08/19/2024 Temperature 98.5 degrees Fahrenheit 06/10/2024 Respiratory Rate 16 /min 08/19/2024 Blood pressure diastolic 78 mm Hg 08/19/2024 Oximetry 97 % 08/19/2024 Height 68 in 08/19/2024 Blood pressure systolic 106 mm Hg 08/19/2024 Weight 212 lbs 08/19/2024 BMI 32.23 kg/m2 08/19/2024 Encounters Encounter Location Date Provider Diagnosis [address] [place] [address] 10/20/2023 Meche Verduzco [address] [place] [address] 10/24/2023 Meche Vedruzco [facility] [address] [place] [address] 10/31/2023 Meche Hysham Schizoaffective disorder F25.9 [facility] [address] [place] [address] 11/06/2023 Meche Dax [facility] Include [facility] [address] [place] [address] 11/08/2023 Meche Dax [facility] Include [address] [facility] [address] [place] [address] 11/15/2023 Meche Dax [facility] Include [address] [facility] [address] [place] [address] 11/15/2023 Meche Dax [facility] Include [address] [facility] [address] [place] [address] 11/28/2023 Meche Hysham [address] [place] [address] 12/25/2023 Meche Dax Schizoaffective disorder F25.9 [facility] [address] [facility] [address] [place] [address] 01/01/2024 Meche Hysham Schizoaffective disorder F25.9 [facility] [address] [facility] [address] [place] [address] 01/05/2024 Meche Hysham [address] [place] [address] 01/12/2024 Meche Dax Schizoaffective disorder F25.9 [facility] [address] [facility] [address] [place] [address] 02/05/2024 Meche Hysham Counts Include [address] [facility] [address] [place] [address] 02/06/2024 Meche Hysham Schizoaffective disorder F25.9 [facility] [address] [place] [address] 03/04/2024 Meche Dax [address] [place] [address] 04/08/2024 Meche Hysham [facility] Include [address] [facility] [address] [place] [address] 04/09/2024 Meche Dax [address] [place] [address] 06/04/2024 Meche Hysham Counts Include [facility] [address] [place] [address] 06/18/2024 Meche Hysham Counts Include [address] [facility] [address] [address] 07/11/2024 Meche Dax [address] [place] [address] 09/02/2024 Meche Hysham Counts Include [address] [facility] [address] [address] 11/06/2023 Meche Dax Schizoaffective disorder F25.9 [facility] Include [address] [facility] [address] [address] 11/27/2023 Meche Dax Schizoaffective disorder F25.9 [facility] Include [address] [facility] [address] [address] 02/05/2024 Meche Dax Nutritional counseli ng Z71.3 and Schizoaffective disorder F25.9 [facility] [address] [facility] [address] [place] [address] 03/04/2024 Meche Hysham Schizoaffective disorder F25.9 [facility] Include [address] [facility] [address] [place] [address] 06/10/2024 Meche Hysham Schizoaffective disorder F25.9 Counts Include [address] [facility] [address] [address] 08/19/2024 Meche Hysham Schizoaffective disorder F25.9 Counts Include [address] [facility] [address] [place] [address] 02/05/2024 Halina Wang Counts Include [address] [facility] [address] [place] [address] 02/20/2024 Meche Dax Schizoaffective disorder F25.9 Counts Include [facility] [address] [place] [address] 03/18/2024 Meche Hysham Schizoaffective disorder F25.[address] [address] 04/02/2024 Meche Dax Schizoaffective disorder F25.[address] [address] 04/16/2024 Meche Dax Schizoaffective disorder F25.9 Counts Include [address] [facility] [address] [address] 05/13/2024 Meche Dax Schizoaffective disorder F25.[address] [address] 09/13/2023 Meche Dax Schizoaffective disorder F25.[address] [address] 09/27/2023 Meche Dax Schizoaffective disorder F25.[address] [address] 06/24/2024 Meche Dax Schizoaffective disorder F25.[address] [address] 07/09/2024 Meche Hysham Schizoaffective disorder F25.9 Assessments Encounter Date Diagnosis (ICD Code) Assessment Notes Treatment Notes Treatment Clinical Notes Section Notes 12/25/2023 Schizoaffective disorder (ICD-10 - F25.9) 11/27/2023 Schizoaffective disorder (ICD-10 - F25.9) Edy desires ROSALES formulation. Increase paliperidone ER 6 mg today and we scheduled a follow up in 10 days on 11/15/23. If her tolerates, he would like to start INvega Sustenna. Likes the idea of three and six month versions. Geovanna has persistent delusions that his meds are really poison and stops and restarts them in pill form. He likes the idea of the medication working in his body after someone else gives him an injection. Stopped all meds except for paliperidone, clonazepam and trazodone. After ROSALES provides stabilty we may introduce the antidepressant and mood stablizer if needed. 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 11/06/2023 Schizoaffective disorder (ICD-10 - F25.9) Edy desires ROSALES formulation. Will to try paliperidone ER 3 mg today and we scheduled a follow up in 10 days on 11/15/23. If her tolerates, he would like to start INvega Sustenna. Likes the idea of three and six month versions. Geovanna has persistent delusions that his meds are really poison and stops and restarts them in pill form. He likes the idea of the medication working in his body after someone else gives him an injection. Edy left a [employer] STatement for provider to complete for Tim Hart for SSDI.Explained I will complete this week and give up an update when we speak at next appt. 10/31/2023 Schizoaffective disorder (ICD-10 - F25.9) 09/27/2023 Schizoaffective disorder (ICD-10 - F25.9) increased haldol to 3 mg QHS, Has RF's on all other meds. 08/19/2024 Schizoaffective disorder (ICD-10 - F25.9) Now refusing ROSALES SUstenna wants to continue to PO med. Strongly urged the ROSALES for ease of dosing and better coverage of symptoms. Confirmed Geovanna has Crisis line and Lisandra who is with him 09/01 as well. Discussed if he feels rageful or having command voices call Crisis line or go to the hospital. He agrees Again offered therapy/group. HAs Rf's through 10/19/24. Provider out until 09/10/24 to follow up then Signs a release so I may communicate with Christiano Greenwood, , public relations supervisor in [facility]. 07/09/2024 Schizoaffective disorder (ICD-10 - F25.9) Agrees to return on07/22/24 for first dose of SUstenna. I want you to be in the buildingthe first time I take it. Confirmed Geovanna has Crisis line and Lisandra who is with him 09/01 as well. Discussed if he feels rageful or having command voices call Crisis line or go to the hospital. He agrees Again offered therapy/group. HAs Rf's through 07/24/24 asked to sign release at PCP so I may received labs etc. --AGrees 06/24/2024 Schizoaffective disorder (ICD-10 - F25.9) Agrees to return on 07/01/24 for first dose of SUstenna. Again reviewed what each medicatioin does and what I expect from them. I strongly recommended ALWAYS taking the paliperidone and that the INvega injection could be easy and fit well. Geovanna states I will take it. I trust you. Would like provider in building while he gets the injeciton. Encouraged to come in one week. Confirmed Geovanna has Crisis line and Lisandra who is with him 09/01 as well. Discussed if he feels rageful or having command voices call Crisis line or go to the hospital. He agrees Again offered therapy/group. 06/10/2024 Schizoaffective disorder (ICD-10 - F25.9) We discussed how dangerous it is to not take meds and having his thinking go offline. AGain offered ROSALES and today geovanna agrees. Lisandra is leary as she knows someone who gets real tired after taking their injection. Geovanna states he doesn't want to waste the PO pills as they were refilled recently. Agrees to return on 06/24/24 for first dose of SUstenna. provided printed info. Geovanna states if I spaz out between now and then I am going to check myself in. Confirmed Geovanna has Crisisi line and Lisandra who is with him 09/01 as well. States he wants to continue all medicaitons and will take until 06/24/24. Again offered therapy/group. Brings SSDI paperwork again for me to complete. 05/13/2024 Schizoaffective disorder (ICD-10 - F25.9) DIscussed what each medication is responsible for;discontinued Depakote. Increased oxcarbazepine today. Again offered therapy/group. 04/16/2024 Schizoaffective disorder (ICD-10 - F25.9) Client could not tolerate lamotrigine and declines to use. Today we added oxcarbazpine for further mood stabilization. Plans in person visit in two weeks. Long discussion on dose numbers and why some are higher or lower. Geovanna states I trust you and when I think about how I was before I know you are doing me right because I AM better and doing more than just hiding away with my life. 04/02/2024 Schizoaffective disorder (ICD-10 - F25.9) Client could not tolerate lamotrigine and declines to use. Today we added oxcarbazpine for further mood stabilization. Plans in person visit in two weeks. Long discussion on dose numbers and why some are higher or lower. Geovanna states I trust you and when I think about how I was before I know you are doing me right because I AM better and doing more than just hiding away with my life. 03/18/2024 Schizoaffective disorder (ICD-10 - F25.9) Client could not tolerate depakote and declines to use. Today we added lamotrigine for further mood stabilization. Plans in person visit in two weeks. Discussed benefits, side effects and risks including rare but life threatening skin rash. Discussed signs of rash, instructed to stop meds and call if any rash appears. Discussed need to slowly titrate up medication. Discussed need to call for instruction is 4 or more days of lamotrigine dose is missed. 03/04/2024 Schizoaffective disorder (ICD-10 - F25.9) explained some need meds that work in a different way to calm the anger down--agrees to try the lowest possible dose so I can see what I think. encouraged to try depakote which is likley lower that what client needs but will check tolerance then increase. Plans in person visit in two weeks. 02/20/2024 Schizoaffective disorder (ICD-10 - F25.9) explained some need meds that work in a different way to calm the anger down--agrees to try the lowest possible dose so I can see what I think. addign depakote which is likley lower that what client needs but will check tolerance then increase. Plans in person visit in two weeks. 02/06/2024 Schizoaffective disorder (ICD-10 - F25.9) 02/05/2024 Schizoaffective disorder (ICD-10 - F25.9) 02/05/2024 Nutritional counseling (ICD-10 - Z71.3) 01/12/2024 Schizoaffective disorder (ICD-10 - F25.9) 01/01/2024 Schizoaffective disorder (ICD-10 - F25.9) 09/13/2023 Schizoaffective disorder (ICD-10 - F25.9) 09/13/2023 Other increased fluxoetine and adding low dose haldol as adjunct to decrease AH 02/05/2024 Other Provided case management services to address social determinants of health needs and reduce barriers to health care services. Provided case management services to address social determinants of health needs and reduce barriers to health care services. 03/04/2024 Other I did provide A BX for tooth infection today due to symptoms preventing engagement with urgent care. CLient has new appt with PCP in 04/11. 01/12/2024 Other CLient no showe d multiple appts. INvega Sustenna was ordered but did not comein for injection and therefore ran out of medications. Today he states he would like to continue PO meds. Will restart meds and FU in 3 weeks in office and if he changes mind we will do the injection at that time as the PA was approved. Meds sent to [facility] 30 days supply. Plan Of Treatment Next Appt Details Provider Name:Meche Verduzco, 0 09/16/2024 08:40:00 AM, [address] [place], [address], Insurance Providers Payer Name Payer Address Payer Phone Subscriber Number Group Number Insured Name Patient Relationship to Insured Coverage Start Date Coverage End Date [facility] Attn Claims Department [address] [place] [address] [id number] Edy Hurtado Self - patient is the insured 3 [facility] Attn Claims Department [address] [place] [address] [id number] Edy Hurtado Self - patient is the insured 3 Medical (General) History Medical History History ICD Code PTSD Anxiety disorder schizophrenia arrythmia DX in 2012--no medications. Hospitalization History Reason Date(Month/Year) chest surgery 08/2024 [facility] [place] for MH 2008
--- OUTSIDE RECORDS SUMMARY | 2024-09-11 22:34 | XMS_ITS | CONTINUITY OF CARE DOCUMENT ---
Author Name kemi mcmullen Address Unknown Organization [facility] Address [address] [place] [address] Phone [phone] Care Team Providers Care Railroad Worker Name Role Phone Karma Mabry MD Unavailable Karma Mabry MD Unavailable [phone] INSURANCE PROVIDERS Payer name Policy type / Coverage type Rachel red green party ID [employer] MEDICAID (2) Medicaid [id number]
--- OUTSIDE RECORDS SUMMARY | 2024-09-11 22:34 | XMS_ITS | Clinical Summary ---
Author Organization [facility] Address [address] [place] [address] Care Team Providers Care Carpenter Maintenance Name Role Phone Unknown, Notinfile Primary Care [...] on file Legal Sex Male 6:12 AM C T TECH Gender Identity Not on file Sexual Orientation [...] Influenza Vaccine (#1) 2024 Insurance Care Teams Carpenter Maintenance Relationship Specialty Start Date End Date Unknown, Notinfile PCP - General 10/13/23
--- OUTSIDE RECORDS SUMMARY | 2024-09-11 22:34 | XMS_ITS | Clinical Summary ---
Author Organization [facility] Address [address] [place] [address] Care Team Providers Care Lint Cleaner Name Role Phone Oral De Los Santos Primary Care Provider [phone] Patrick Lara MD Unavailable Allergies Active Allergy [...] Department Care Team Description 08/21/2024 10:00 AM WORKFORCE DEVELOPMENT PROGRAM DIRECTOR [facility] [address] [place] [address] Patrick Lara MD Palpitations (Primary Dx); Labile blood pressure Discharge Disposition: Discharged to home or Selfcare 08/21/2024 Travel [facility] [place] [address] Patrick Lara MD from Last 3 Months [...] on file Legal Sex Male 11:13 AM WORKFORCE DEVELOPMENT PROGRAM DIRECTOR Gender Identity Not on file Sexual Orientation Not on file Last Filed Vital Signs Vital Sign Reading Time Taken Comments Blood Pressure 122/78 08/21/2024 10:17 AM WORKFORCE DEVELOPMENT PROGRAM DIRECTOR Pulse 67 08/21/2024 10:17 AM WORKFORCE DEVELOPMENT PROGRAM DIRECTOR Temperature 36.1 C (96.9 F) 08/21/2024 10:17 AM WORKFORCE DEVELOPMENT PROGRAM DIRECTOR Respiratory Rate 14 08/21/2024 10:17 AM WORKFORCE DEVELOPMENT PROGRAM DIRECTOR Oxygen Saturation 100% 08/21/2024 10:17 AM WORKFORCE DEVELOPMENT PROGRAM DIRECTOR Inhaled Oxygen Concentration - - Weight 95.7 kg (211 lb) 08/21/2024 10:17 AM WORKFORCE DEVELOPMENT PROGRAM DIRECTOR Height 172.7 cm (5' 8 ) 08/21/2024 10:17 AM WORKFORCE DEVELOPMENT PROGRAM DIRECTOR Body Mass Index 32.08 08/21/2024 10:17 AM WORKFORCE DEVELOPMENT PROGRAM DIRECTOR Plan of Treatment Upcoming Encounters Date Type Department Care Team (Late st Contact Info) Description 10/03/2024 1:00 PM CDT [facility] [address] [place] [address] Patrick Lara MD [facility] [address] [address] Discharge Disposition: Discharged to home or Selfcare 10/03/2024 2:00 PM CDT Appointment [facility]iology Services [address] [place] [address] Patrick Lara MD [address] [address] Discharge Disposition: Discharged to home or Selfcare 08/22/2025 9:30 AM WORKFORCE DEVELOPMENT PROGRAM DIRECTOR Office Visit [facility] - Cardiology [facility] [address] [place] [address] Rossy Koehler, SERVICE ESTABLISHMENT ATTENDANT, MOLD OPERATOR [address] [place] [address] Health Maintenance Due Date Last Done Comments [...] Insurance MEDICAID [employer] Care Teams Lint Cleaner Relationship Specialty Start Date End Date Oral De Los Santos PAC [address] [place] [address] PCP - General Physician Flame Burner 08/21/24 Patrick Lara MD [address] [address] Consulting Physician Cardiology 08/21/24
--- OUTSIDE RECORDS SUMMARY | 2024-09-11 22:34 | XMS_ITS | Data Portability ---
Author Organization [facility] Address [address] [place] [address] Care Team Providers Care Territory Sales Professional Name Role Phone ORAL DE LOS SANTOS Primary Care Provider [phone] Assessment No assessment recorded. Plan of Treatment Reminders Order Date Submit Date Provider Last Modified By Organization Details Last Modified Time Details Appointments ANY 15 2024 09:45A M ORAL DE LOS SANTOS PA-C Not available Not available Not available Lab noninvasi ve colorecta l cancer DNA + occult blood screening , QL, stool 2024 025 [facility] (Cologuard Orders Only), [address], [address], [place], [address], 09/02/2024 19:27:09 TSH + free T4, serum 2024 025 [place] [facility], [address], [address], [place], [address], 07/16/2024 08:26:46 chlamydia trachomat is + neisseria gonorrhoe ae + trichomon as vaginalis rRNA panel, KODY+probe 2023 024 [place] [facility], [address], [address], [place], [address], 04/05/2024 06:20:29 RPR (rapid plasma reagin), serum 2023 024 [place] [facility], [address], [place], [address], 04/05/2024 06:20:32 Hepatitis C IgG Ab, qual, serum 2023 [place] [facility], [address], [place], [address], 04/05/2024 06:20:28 hsv (1+2) igg, serum 2023 [facility], [address], [address], [place], [address], 07/16/2024 08:26:45 CBC w/ auto diff 2023 [place] [facility], [address], [place], [address], 04/03/2024 20:09:48 lipid panel, serum 2023 [facility], [address], [place], [address], 04/03/2024 20:09:46 CMP, serum or plasma 2023 [place] [facility], [address], [place], [address], 04/03/2024 20:09:47 HbA1c (hemoglob in A1c), blood 2023 [facility], [address], [address], [place], [address], 04/05/2024 06:20:31 TSH, ultra-sen sitive, serum 2023 024 [place] [facility], [address], [place], [address], 04/05/2024 06:20:30 vitamin D, 25-hydrox y, total, serum 2023 [place] [facility], [address], [place], [address], 04/05/2024 06:20:33 HIV 1 + 2, meaningfu l use set 2023 024 [place] [facility], [address], [address], [address], 04/05/2024 06:20:35 Referral cardiolog ist referral 2024 025 [facility]ara, [address] [place], [address], 09/11/2024 04:12:15 Procedures None recorded. Surgeries None recorded. Imaging US, chest wall 2024 025 [facility] ([facility]), [address] [place], [address], 07/25/2024 17:02:56 Medication Orders Delsym 12 hour 30 mg/5 mL oral suspensio n,extende d release 2024 025 [facility] #[id number], [address] [place] [address], [place], [id number], 08/12/2024 10:04:23 Zithromax Z-Martinez 250 mg tablet 2024 025 [facility] #48373, [address] [place] [address], [place], [id number], 08/12/2024 10:04:16 albuterol sulfate HFA 90 mcg/actua tion aerosol inhaler 2024 025 [facility], [address] [place], [place], [id number], 08/12/2024 10:04:22 Symbicort 160 mcg-4.5 mcg/actua tion HFA aerosol inhaler 2024 025 [facility] #08669, [address] [place] [address], [place], [id number], 08/12/2024 10:04:14 Drysol 20 % topical solution 2024 025 [facility] #74159, [address] [place], [place], [id number], 07/15/2024 12:32:50 albuterol sulfate HFA 90 mcg/actua tion aerosol inhaler 2024 025 [facility] #97199, [address], [place], [id number], 07/15/2024 12:32:47 Symbicort 160 mcg-4.5 mcg/actua tion HFA aerosol inhaler 2024 025 [facility] #68358, [address], [place], [id number], 07/15/2024 12:32:48 Debrox 6.5 % ear drops 2023 024 [id number], [address] [place], [place], [id number], 04/03/2024 10:55:57 Patient TargetsNo targets recorded. Patient Instructions Encounter Date Encounter Id Patient Instructions Last Modified By Organization Details Last Modified Time 04/03/2024 [id number] influenza (flu) vaccine: care instructions Not available 04/03/2024 09:16:54 Quitting Tobacco : Care Instructions [email or web address] Not available 04/03/2024 09:16:53 A healthy lifestyle: care instructions Not available 04/03/2024 09:16:53 schizophrenia: care instructions Not available 04/03/2024 09:16:53 07/15/2024 [id number] palpitations: care instructions [email or web address] Not available 07/15/2024 12:32:41 chronic obstructive pulmonary disease (COPD): care instructions Not available 07/15/2024 12:32:41 learning about copd and how to prevent lung infections [email or web address] Not available 07/15/2024 12:32:41 08/12/2024 [id number] A healthy lifestyle: care instructions [email or web address] Not available 08/12/2024 10:04:13 cough: care instructions [email or web address] Not available 08/12/2024 10:04:04 upper respirator y infection (cold): care instructions [email or web address] Not available 08/12/2024 10:04:04 Reason for Referral Claims Manager Referral for Pa lpitations Referring Physician: Oral De Los Santos, Family Medicine, Encounter Date: 07/15/2024 Results Created Date Observation Date Name Description Value Unit Range Abnormal Flag Note LastModifiedBy Organization Detail LastModifiedTime 04/03/2004/03/2024 LIPID PANEL cholesterol, total 163 mg/dL 100-19 9 Not Available [facility] Department [address] [place], [address], 04/03/2024 20:09:46 04/03/2004/03/2024 LIPID PANEL triglyceride s 59 mg/dL 0-149 Not Available [facility] Department [address] [place], [address], 04/03/2024 20:09:46 04/03/2004/03/2024 LIPID PANEL HDL cholesterol 63 mg/dL 40-[address] [facility] Department [address] [place], [address], 04/03/2024 20:09:46 04/03/2004/03/2024 LIPID PANEL VLDL cholesterol alma 12 mg/dL 5-40 Not Available [facility] Department [address] [place], [address], 04/03/2024 20:09:46 04/03/2004/03/2024 LIPID PANEL LDL chol calc ([facility]) 96 mg/dL 0-99 Not Available [facility] Department [address] [place], [address], 04/03/2024 20:09:46 04/03/20 04/03/2024 COMP. METAB OLIC PANEL (14) glucose 81 mg/dL 70-99 Not Available [facility] Department [address] [place], [address], 04/03/2024 20:09:47 04/03/20 24 04/03/2024 COMP. METAB OLIC PANEL (14) BUN 10 mg/dL 6-24 Not Available [facility] Department [address] [place] [address], [address], 04/03/2024 20:09:47 04/03/20 24 04/03/2024 COMP. METAB OLIC PANEL (14) creatinine 0.96 mg/dL 0.76-1 .27 Not Available [facility] Department [address] [place] [address], [address], 04/03/2024 20:09:47 04/03/20 24 04/03/2024 COMP. METAB OLIC PANEL (14) eGFR 98 >=60 Units for eGFR value s are mL/mi n/1.7 3 The eGFR Calcu latio n has not been valid ated for patie nts under the age of 18. If test resul ts are displ ayed for a patie nt under the age of 18, disre williams that value . Not Available [facility] Department [address] [place] [address], [address], 04/03/2024 20:09:47 04/03/20 24 04/03/2024 COMP. METAB OLIC PANEL (14) BUN/creatini ne ratio 10 9-20 Not Available [facility] Department [address] [place], [address], 04/03/2024 20:09:47 04/03/20 24 04/03/2024 COMP. METAB OLIC PANEL (14) sodium 142 mmol/ L 134-14 4 Not Available [facility] Department [address] [place], [address], 04/03/2024 20:09:47 04/03/20 24 04/03/2024 COMP. METAB OLIC PANEL (14) potassium 4.9 mmol/ L 3.5-5. 2 Not Available [facility] Department [address] [place] [address], [address], 04/03/2024 20:09:47 04/03/20 24 04/03/2024 COMP. METAB OLIC PANEL (14) chloride 105 mmol/ L 96-106 Not Available [facility] Department [address] [place] [address], [address], 04/03/2024 20:09:47 04/03/2004/03/2024 COMP. METAB OLIC PANEL (14) carbon dioxide, total 29 mmol/ L 20-29 Not Available [facility] Department [address] [place] [address], [address], 04/03/2024 20:09:47 04/03/20 24 04/03/2024 COMP. METAB OLIC PANEL (14) calcium 9.5 mg/dL 8.7-10 .2 Not Available [facility] Department [address] [place], [address], 04/03/2024 20:09:47 04/03/20 24 04/03/2024 COMP. METAB OLIC PANEL (14) protein, total 6.9 g/dL 6.0-8. 5 Not Available [facility] Department [address] [place] [address], [address], 04/03/2024 20:09:47 04/03/2004/03/2024 COMP. METAB OLIC PANEL (14) albumin 4.3 g/dL 4.1-5. 1 Not Available [facility] Department [address] [place] [address], [address], 04/03/2024 20:09:47 04/03/20 24 04/03/2024 COMP. METAB OLIC PANEL (14) globulin, total 2.6 g/dL 1.5-4. 5 Not Available [facility] Department [address] [place] [address] [place], [address], 04/03/2024 20:09:47 04/03/20 24 04/03/2024 COMP. METAB OLIC PANEL (14) A/G ratio 2.0 1.2-2. 2 Not Available [facility] Department [address] [place], [address], 04/03/2024 20:09:47 04/03/20 24 04/03/2024 COMP. METAB OLIC PANEL (14) bilirubin, total 0.2 mg/dL 0.0-1. 2 Not Available [facility] Department [address] [place], [address], 04/03/2024 20:09:47 04/03/20 24 04/03/2024 COMP. METAB OLIC PANEL (14) alkaline phosphatase 104 IU/L 44-[address] [facility] Department [address] [place], [address], 04/03/2024 20:09:47 04/03/20 24 04/03/2024 COMP. METAB OLIC PANEL (14) AST (SGOT) 22 IU/L 0-40 Not Available [facility] Department [address] [place], [address], 04/03/2024 20:09:47 04/03/20 24 04/03/2024 COMP. METAB OLIC PANEL (14) ALT (SGPT) 18 IU/L 0-44 Not Available [facility] Department [address] [place] [address], [address], 04/03/2024 20:09:47 04/03/20 24 04/03/2024 CBC WITH DIFFE RENTI AL/PL ATELE T WBC 4.0 x10e3 /uL 3.4-10 .8 Not Available [facility] Department [address] [place] [address], [address], 04/03/2024 20:09:48 1004/03/2024 CBC WITH DIFFE RENTI AL/PL ATELE T RBC 5.27 x10e6 /uL 4.14-5 .80 Not Available [facility] Department [address] [place], [address], 04/03/2024 20:09:48 04/03/20 24 04/03/2024 CBC WITH DIFFE RENTI AL/PL ATELE T hemoglobin 15.2 g/dL 13.0-1 7.7 Not Available [facility] Department [address] [place], [address], 04/03/2024 20:09:48 04/03/2004/03/2024 CBC WITH DIFFE RENTI AL/PL ATELE T hematocrit 46.0 % 37.5-5 1.0 Not Available [facility] Department [address] [place], [address], 04/03/2024 20:09:48 04/03/20 24 04/03/2024 CBC WITH DIFFE RENTI AL/PL ATELE T MCV 87 fL 79-97 Not Available [facility] Department [address] [place], [address], 04/03/2024 20:09:48 04/03/20 24 04/03/2024 CBC WITH DIFFE RENTI AL/PL ATELE T MCH 28.8 pg 26.6-3 3.0 Not Available [facility] Department [address] [place], [address], 04/03/2024 20:09:48 04/03/20 24 04/03/2024 CBC WITH DIFFE RENTI AL/PL ATELE T MCHC 33.0 g/dL 31.5-3 5.7 Not Available [facility] Department [address] [place], [address], 04/03/2024 20:09:48 04/03/20 24 04/03/2024 CBC WITH DIFFE RENTI AL/PL ATELE T RDW 13.1 % 11.5-1 4.5 Not Available [facility] Department [address] [place], [address], 04/03/2024 20:09:48 04/03/20 24 04/03/2024 CBC WITH DIFFE RENTI AL/PL ATELE T platelets 248 x10e3 /uL 150-45 0 Not Available [facility] Department [address] [place], [address], 04/03/2024 20:09:48 04/03/20 24 04/03/2024 CBC WITH DIFFE RENTI AL/PL ATELE T neutrophils 51 % notest b. Not Available [facility] Department [address] [place], [address], 04/03/2024 20:09:48 04/03/20 24 04/03/2024 CBC WITH DIFFE RENTI AL/PL ATELE T lymphs 34 % notest b. Not Available [facility] Department [address] [place], [address], 04/03/2024 20:09:48 04/03/20 24 04/03/2024 CBC WITH DIFFE RENTI AL/PL ATELE T monocytes 11 % notest b. Not Available [facility] Department [address] [place], [address], 04/03/2024 20:09:48 04/03/20 24 04/03/2024 CBC WITH DIFFE RENTI AL/PL ATELE T eos 4 % notest b. Not Available [facility] Department [address] [place], [address], 04/03/2024 20:09:48 04/03/20 24 04/03/2024 CBC WITH DIFFE RENTI AL/PL ATELE T basos 1 % notest b. Not Available [facility] Department [address] [place], [address], 04/03/2024 20:09:48 04/03/20 24 04/03/2024 CBC WITH DIFFE RENTI AL/PL ATELE T neutrophils (absolute) 2.0 x10e3 /uL 1.4-7. 0 Not Available [facility] Department [address] [place], [address], 04/03/2024 20:09:48 04/03/20 24 04/03/2024 CBC WITH DIFFE RENTI AL/PL ATELE T lymphs (absolute) 1.3 x10e3 /uL 0.7-3. 1 Not Available [facility] Department [address] [place], [address], 04/03/2024 20:09:48 04/03/2004/03/2024 CBC WITH DIFFE RENTI AL/PL ATELE T monocytes(ab solute) 0.4 x10e3 /uL 0.1-0. 9 Not Available [facility] Department [address] [place], [address], 04/03/2024 20:09:48 04/03/20 24 04/03/2024 CBC WITH DIFFE RENTI AL/PL ATELE T eos (absolute) 0.1 x10e3 /uL 0.0-0. 4 Not Available [facility] Department [address] [place], [address], 04/03/2024 20:09:48 04/03/20 24 04/03/2024 CBC WITH DIFFE RENTI AL/PL ATELE T baso (absolute) 0.0 x10e3 /uL 0.0-0. 2 Not Available [facility] Department [address] [place], [address], 04/03/2024 20:09:48 04/03/2004/03/2024 CBC WITH DIFFE RENTI AL/PL ATELE T immature granulocytes 0.5 % notest b. Not Available [facility] Department [address] [place], [address], 04/03/2024 20:09:48 04/03/2011 0404/03/2024 CBC WITH DIFFE RENTI AL/PL ATELE T immature grans (abs) 0.0 x10e3 /uL 0.0-0. 1 Not Available [facility] Department [address] [place], [address], 04/03/2024 20:09:48 04/03/20 24 04/03/2024 CBC WITH DIFFE RENTI AL/PL ATELE T NRBC 0 % 0-0 Not Available [facility] Department [address] [facility], [place], [address], 04/03/2024 20:09:48 04/03/2004/04/2024 INTER PRETA TION: interpretati on: Commen t Not infec padmini with HCV unles s early or acute infec tion is suspe cted (whic h may be delay ed in an immun ocomp romis ed indiv idual ), or other evide nce exist s to indic ate HCV infec tion. Not Available [facility] ([facility]) [address] [place], [address], 04/05/2024 06:20:27 04/03/2004/04/2024 HCV ANTIB THALIA RFX TO QUANT PCR HCV Ab NON REACTI VE nonrea ctive Not Available [facility] ([facility]) [address] [place], [address], 04/05/2024 06:20:28 04/03/2004/05/2024 CT, NG, TRICH VAG BY KODY chlamydia by KODY NEGATI VE negati ve Not Available [facility] ([facility]) [address] [place], [address], 04/05/2024 06:20:29 04/03/2004/05/2024 CT, NG, TRICH VAG BY KODY gonococcus by KODY NEGATI VE negati ve Not Available [facility] ([facility]) [address] [place], [address], 04/05/2024 06:20:29 04/03/20 24 04/05/2024 CT, NG, TRICH VAG BY KODY trich vag by KODY NEGATI VE negati ve Not Available [facility] ([facility]) [address] [facility], [place], [address], 04/05/2024 06:20:29 04/03/20 24 04/04/2024 TSH RFX ON ABNOR MAL TO FREE T4 TSH 1.910 uIU/m L 0.450- 4.500 Not Available [facility] ([facility]) [address] [place], [address], 04/05/2024 06:20:30 04/03/2004/03/2024 HEMOG LOBIN A1C hemoglobin A1C 5.7 % 4.8-5. 6 above high normal Predi abete s: 5.7 - 6.4 Diabe tiffanie: >6.4 Glyce mango contr ol for adult s with diabe tiffanie: <7.0 Not Available [facility] ([facility]) [address] [facility], [place], [address], 04/05/2024 06:20:31 04/03/20 24 04/04/2024 RPR, RFX QN RPR/C ONFIR M TP RPR NON REACTI VE nonrea ctive Not Available [facility] ([facility]) [address] [place], [address], 04/05/2024 06:20:32 04/03/20 24 04/04/2024 VITAM IN D, 25-HY DROXY vitamin D, 25-hydroxy 7.3 NG/mL 30.0-1 00.0 below low normal Vitam in D defic iency has been defin ed by the Insti tute of Medic ine and an Endoc rine Socie ty pract ice guide line as a level of serum 25-OH vitam in D less than 20 ng/mL (1,2) . The Endoc rine Socie ty went on to furth er defin e vitam in D insuf ficie ncy as a level betwe en 21 and 29 ng/mL (2). 1. IOM (Inst itute of Medic ine). 2009. Dieta ry refer ence ravinder es for calci um and D. Katherine meyer [place]: [facility] . 2. Michael k MF, Binkl ey [place], Bisch off-F errar i CHACON, et al. Evalu ation , treat ment, and preve ntion of vitam in D defic iency : an Endoc rine Socie ty clini alma pract ice guide line. JCEM. 2010; 96(7) :1911 -30. Not Available [facility] ([facility]) [address] [facility], [place], [address], 04/05/2024 06:20:33 04/03/20 24 04/04/2024 HIV AB/P2 4 AG WITH REFLE X HIV Ab/P24 Ag screen NON REACTI VE nonrea ctive HIV-1 /HIV- 2 antib odies and HIV-1 p24 antig en were NOT detec padmini. There is no labor atory evide nce of HIV infec tion. HIV Negat marine Not Available [facility] ([facility]) [address] [facility], [place], [address], 04/05/2024 06:20:35 07/15/19 25 07/16/2024 HSV 1 AND 2 AB, IGG hsv 1 IgG, type spec REACTI VE nonrea ctive abnormal Ple ase note refer ence inter eric medrano e HSV-1 IgG testi ng perfo rmed using the [employer] HSV-1 IgG assay . Not Available [facility] ([facility]) [address] [facility], [place], [address], 07/16/2024 08:26:45 07/15/19 25 07/16/2024 HSV 1 AND 2 AB, IGG hsv 2 IgG, type spec REACTI VE nonrea ctive abnormal Ple ase note refer ence inter eric medrano e Curre nt guide lines and recom menda tions do not recom mend routi ne scree sean for HSV-2 in asymp tomat ic indiv idual s, inclu ding those that are pregn ant. The detec tion of HSV-2 IgG antib odies in a singl e sampl e indic ates previ ous expos ure to HSV-2 but does not give infor matio n as to the site of HSV infec tion or the timin g of expos ure. The predi ctive value of posit marine and negat marine resul ts depen ds on the popul ation 's preva lence and the prete st likel ihood of HSV-2 . HSV-2 IgG testi ng perfo rmed using the [employer] HSV-2 IgG assay . Not Available [facility] ([facility]) [address] [place], [address], 07/16/2024 08:26:45 07/15/19 25 07/16/2024 TSH+F REE T4 TSH 1.630 uIU/m L 0.450- 4.500 Not Available [facility] ([facility]) [address] [place], [address], 07/16/2024 08:26:46 07/15/19 25 07/16/2024 TSH+F REE T4 T4,free(dire ct) 1.03 NG/dL 0.82-1 .77 Not Available [facility] ([facility]) [address] [place], [address], 07/16/2024 08:26:46 08/29/19 25 08/28/2024 COLOG UARD cologuard result reportable NEGATI VE negati ve normal NEGAT MARINE TEST RESUL T. A negat marine Colog uard resul t indic ates a low likel ihood that a color ectal cance r (CRC) or advan pari adeno ma (lacey omato us polyp s with more advan pari pre-m align ant featu res) is prese nt. The chanc e that a perso n with a negat marine Colog uard test has a color ectal cance r is less than 1 in 1500 (nega tive predi ctive value >99.9 %) or has an advan pari adeno ma is less than 5.3% (nega tive predi ctive value 94.7% ). These data are based on a prosp ectiv e cross -sect ional study of 10,00 0 indiv idual s at [place] risk for color ectal cance r who were scree reid with both Colog uard and colon oscop y. (Dick Ferrer al, N Engl J Med 2014; 370(1 4):12 86-12 97) The meir l value (refe rence range ) for this assay is negat marine. COLOG UARD RE-SC REEKENIA NG RECOM MENDA TION: Perio dic color ectal cance r scree sean is an impor tant part of preve ntive healt hcare for asymp tomat ic indiv idual s at [place] risk for color ectal cance r. Follo wing a negat marine Colog uard resul t, the Ameri can Cance r Socie ty and U.S. Multi -Soci ety Task Force scree sean guide lines recom mend a Colog uard re-sc reekenia ng inter eric of 3 years . Refer ences : Ameri can Cance r Socie ty Guide line for Color ectal Cance r Scree sean: https ://zee w.can cer.o rg/ca ncer/ colon -rect al-ca ncer/ detec tion- diagn osis- stagi ng/ac s-rec ommen datio ns.ht ml.; Graeme DK, Cecelia garcia CR, David adrian JK, Color ectal Cance r Scree sean: Recom menda tions for Physi cians and Patie nts from the U.S. Multi -Soci ety Task Force on Color ectal Cance r Scree sean , Cezar berman rolog y 2017; 112:1 016-1 030. TEST DESCR IPTIO N: [place] site algor ithmi c navin sis of stool DNA-b iomar kers with hemog lobin immun oassa y. Quant itati ve value s of indiv idual bioma rkers are not repor table and are not assoc iated with indiv idual bioma rker resul t refer ence range s. Colog uard is inten ded for color ectal cance r scree sean of adult s of eithe r sex, 45 years or older , who are at [facility] for color ectal cance r (CRC) . Colog uard has been appro ramón for use by the U.S. FDA. The perfo rmanc e of Colog uard was estab lishe d in a cross secti onal study of [facility] adult s aged 50-84 . Colog uard perfo rmanc e in patie nts ages 45 to 49 years was estim ated by nader-g [place] navin sis of near- age group s. Colon oscop ies perfo rmed for a posit marine resul t may find as the most clini bhavana signi fican t lesio n: color ectal cance r [4.0% ], advan pari adeno ma (incl uding sessi le bar padmini polyp s great er than or equal to 1cm diame ter) [20%] or non- advan pari adeno ma [31%] ; or no color ectal neopl olga [45%] . These estim ates are deriv ed from a prosp ectiv e cross -sect ional scree sean study of 10,00 0 indiv idual s at [facility] risk for color ectal cance r who were scree reid with both Colog uard and colon oscop y. (Dick Vickers et al, N Engl J Med 2014; 370(1 4):12 86-12 97.) Colog uard may produ ce a false negat marine or false posit marine resul t (no color ectal cance r or preca ncero us polyp prese nt at colon oscop y follo w up). A negat marine Colog uard test resul t does not guara ntee the absen ce of CRC or advan pari adeno ma (pre- cance r). The curre nt Colog uard scree sean inter eric is every 3 years . (Amer ican Cance r Socie ty and U.S. Multi -Soci ety Task Force ). Colog uard perfo rmanc e data in a 10,00 0 patie nt pivot al study using colon oscop y as the refer ence metho d can be acces sed at the follo wing locat ion: www.e xactl abs.c om/re kelsey . Addit ional descr iptio n of the Colog uard test proce ss, warni ngs and preca ution s can be found at www.c rashard meghna.c om. Not Available [employer] (Cologuard Orders Only) [address], [place], [address], 09/02/2024 19:27:09 07/25/19 25 07/25/2024 US, chest wall No observ ation record ed. [facility] [address] [place], [address], 08/12/2024 10:44:09 Result Notes None recorded. Problems Name Problem SNOMED Code Status Onset Date Resolution Date Notes Provider Name and Address Organization Details Recorded Time Schizophrenia [id number] Active 2023 ORAL DE LOS SANTOS PA-C Attn: Accountin g,[address] [facility], [place], [address], [facility] - SIF 4 08:53:03 Vitamin D deficiency [id number] Active 2023 ORAL DE LOS SANTOS PA-C Attn: Accountin g,[address] [facility], [place], [address], [place] - [place] 4 09:01:35 Prediabetes [id number] Active 2023 ORAL DE LOS SANTOS PA-C Attn: Accountin g,[address] [facility], [place], [address], [place] - SIF 4 09:01:42 Problem Notes None recorded. Procedures Surgical History None recorded. Imaging Results Imaging Date Name Status LastModified by Organiz ation Details LastModified Time 07/25/2024 US, chest wall completed [facility] [address] [place], [address], 08/12/2024 10:44:09 Procedure Notes None recorded. Medical Equipment None Reported. 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 2024 active Not Available Not Available Not Avai lable ipratropium 0.5 mg-albutero l 3 mg (2.5 mg base)/3 mL nebulizatio n soln USE 1 VIAL VIA NEBULIZER EVERY 4 TO 6 HOURS NEEDED 08/12 completed Not Available Not Available Not Available trazodone 50 mg tablet TAKE 1 TABLET BY MOUTH DAILY AT BEDTIME NEEDED active Not Available Not Available No t Available azithromyci n 250 mg tablet TAKE 2 TABLETS (500 MG) BY ORAL ROUTE ONCE DAILY FOR 1 DAY THEN 1 TABLET (250 MG) BY ORAL ROUTE ONCE DAILY FOR 4 DAYS active Not Available Not Available No t Available prednisone 20 mg tablet TAKE 2 TABLETS BY MOUTH DAILY FOR 5 DAYS 04/03 completed Not Available Not Available Not Available clonazepam 0.5 mg tablet 04/03 completed Not Available Not Available Not Available clonazepam 1 mg tablet TAKE 1 TABLET BY MOUTH DAILY NEEDED active Not Available Not Available No t Available Debrox 6.5 % ear drops INSTILL 5 DROPS INTO AFFECTED EAR(S) BY OTIC ROUTE 2 TIMES PER DAY 2023 active Not Available Not Available Not Avai lable haloperidol 1 mg tablet 08/12 completed Not Available Not Available Not Available oxcarbazepi ne 300 mg tablet 08/12 completed Not Available Not Available Not Available acyclovir 800 mg tablet TAKE 1 TABLET BY MOUTH THREE TIMES DAILY FOR 10 DAYS FOR FLARE UP active Not Available Not Available No t Available lamotrigine 25 mg tablet 08/12 completed Not Available Not Available Not Available trazodone 100 mg tablet 04/03 completed Not Available Not Available Not Available divalproex ER 500 mg tablet,exte nded release 24 hr TAKE 1 TABLET BY MOUTH DAILY AT BEDTIME active Not Available Not Available No t Available benztropine 1 mg tablet active Not Available Not Available Not Available oxcarbazepi ne 600 mg tablet active Not Available Not Available Not Available hydroxyzine HCl 25 mg tablet TAKE 1 TABLET BY MOUTH EVERY 6 HOURS 08/12 completed Not Available Not Available Not Available methylpredn isolone 4 mg tablets in a dose pack FOLLOW PACKAGE DIRECTION S 04/03 completed Not Available Not Available Not Available albuterol sulfate HFA 90 mcg/actuati on aerosol inhaler INHALE 2 PUFFS BY MOUTH EVERY 4 HOURS active Not Available Not Available No t Available fluoxetine 20 mg capsule 08/12 completed Not Available Not Available Not Available prazosin 2 mg capsule 04/03 completed Not Available Not Available Not Available amoxicillin 875 mg-potassiu m clavulanate 125 mg tablet TAKE 1 TABLET BY MOUTH EVERY 12 HOURS FOR 3 DAYS 04/03 completed Not Available Not Available Not Available bupropion HCl XL 150 mg 24 hr tablet, extended release TAKE 1 TABLET BY MOUTH DAILY IN THE MORNING active Not Available Not Available No t Available escitalopra m 5 mg tablet TAKE 1 TABLET BY MOUTH DAILY active Not Available Not Available No t Available quetiapine 50 mg tablet 08/12 completed Not Available Not Available Not Available paliperidon e ER 9 mg tablet,exte nded release 24 hr TAKE 1 TABLET BY MOUTH DAILY IN THE MORNING 04/03 completed Not Available Not Available Not Available paliperidon e ER 6 mg tablet,exte nded release 24 hr TAKE 1 TABLET BY MOUTH DAILY IN THE MORNING active Not Available Not Available No t Available Symbicort 160 mcg-4.5 mcg/actuati on HFA aerosol inhaler INHALE 2 PUFFS BY MOUTH TWICE DAILY active Not Available Not Available No t Available cholecalcif sandy (vitamin D3) 1,250 mcg (50,000 unit) capsule Take 1 capsule every week by oral route. 2023 active Not Available Not Available Not Avai lable quetiapine ER 400 mg tablet,exte nded release 24 hr active Not Available Not Available Not Available Drysol 20 % topical solution Apply 1 applicati on every day by topical route for 30 days. 2024 active Not Available Not Available Not Avai lable Vitals Date Recorded Body height Body mass index (BMI) Body weight Oxygen saturation Oxygen saturation in Arterial blood by Pulse oximetry Heart rate Systolic blood pressure Diastolic blood pressure Provider Name and Address Organization Details Last Updated DateTime 4 172.72 cm 32.6 kg/m2 27947.2 2 g 98 % 98 % 75 /min 98 mm[Hg] 66 mm[Hg] Padmini Silverman MA [facility] 4 08:43:48 Date Recorded Body height Body mass index (BMI) Body weight Body temperature Oxygen saturation Oxygen saturation in Arterial blood by Pulse oximetry Heart rate Systolic blood pressure Diastolic blood pressure Provider Name and Address Organization Details Last Updated DateTime 5 172.72 cm 32.6 kg/m2 81900.2 8 g 98.4 [degF] 97 % 97 % 78 /min 132 mm[Hg] 82 mm[Hg] Lidia Nash MA [facility] 5 11:59:37 Date Recorded Body height Body mass index (BMI) Body weight Body temperature Oxygen saturation Oxygen saturation in Arterial blood by Pulse oximetry Heart rate Systolic blood pressure Diastolic blood pressure Provider Name and Address Organization Details Last Updated DateTime 5 172.72 cm 32 kg/m2 06166.4 8 g 98.2 [degF] 96 % 96 % 77 /min 122 mm[Hg] 80 mm[Hg] Lidia Nash MA [facility] 5 09:25:45 Social History Question Answer Notes LastModified by Organizat ion Details LastModified Time Tobacco Smoking Status Former Smoker Lidia Nash MA null, [facility] 08/12/2024 09:23:03 Do You Have An Advance Directive? No Information not available 04/03/2024 What Is Your Level Of Alcohol Consumption? None Information not available 04/03/2024 What Is Your Level Of Caffeine Consumption? None Information not available 04/03/2024 Do You Or Have You Ever Used E-cigarettes Or Vape? Current User Of Electronic Cigarettes Information not available 04/03/2024 What Was The Date Of Your Most Recent Tobacco Screening? 08/12/2024 [email or web address] Information not available 08/12/2024 What Is Your Relationship Status? Domestic Partner Information not available 04/03/2024 Do You Use Your Seat Belt Or Car Seat Routinely? Yes Information not available 04/03/2024 Do You Have Smoke And Carbon Monoxide Detectors In Your Home? Yes Information not available 04/03/2024 Do You Or Have You Ever Used Smokeless Tobacco? Never Used Smokeless Tobacco Information not available 04/03/2024 Do You Use Any Illicit Or Recreational Drugs? Yes Marijuana Information not available 04/03/2024 Do You Use Sunscreen Routinely? Yes Information not available 04/03/2024 Has Tobacco Cessation Counseling Been Provided? Yes Information not available 04/03/2024 On What Date Was Tobacco Cessation Counseling Provided? 04/03/2024 Information not available 04/03/2024 How Many Years Have You Smoked Tobacco? 35 Information not available 04/03/2024 Do You Or Have You Ever Used Any Other Forms Of Tobacco Or Nicotine? Yes Information not available 04/03/2024 How Many Years Have You Used E-cigarettes Or Vape? 10 Information not available 04/03/2024 Sex: Unknown Functional Status None recorded. Mental Status None recorded. Family History Relationship Description Onset Age of this Age Resolved Age Notes LastModified by Organization Details LastModified Time Mother Heart disease [email or web address] Not available 03/19 08:39:37 Mother Hypertensive disorder [email or web address] Not available 03/19 08:40:16 Brother Heart disease 43 [email or web address] Not available 03/19 08:39:56 Brother Hypertensive disorder [email or web address] Not available 03/19 08:40:31 Sister Hypertensive disorder [email or web address] Not available 03/19 08:40:25 Medical History No medical history recorded. Immunizations Vaccine Type Date Status Note Provider Nam e and Address Organization Details Recorded Time Tdap 3 completed ORAL DE LOS SANTOS PA-C Attn: Accounting,[address], [place], [address], [facility] 04/03/2024 09:02:24 Influenza, split virus, trivalent, preservative 4 completed Padmini Silverman MA null, [facility] 04/03/2024 12:34:58 Past Encounters Encounter ID Performer Location Encounter Start Date Encounter Closed Date Diagnosis/Indication Diagnosis SNOMED-CT Code Diagnosis ICD10 Code Diagnosis Note [id number] LINDA ZHANG (Adult Med) [address] [place] [address] [phone] 04/03/2024 08:21:31 04/09/2024 12:47:56 Smoker 70428364 F17.200 Vapes daily Depression screening 171 040480 Z13.31 PHQ9- {{Negative Positive Mild Moder ate* Sever e}} (14 out of 27)Current ly following with at [facility] screening 377294602 Z13.39 GAD7- {{Negative Positive Mild Moder ate Severe *}} (20 out of 21)Current ly following with at [facility] Obesity 411801188 E66.9 BMI 32.6 Advised decreased portion sizes, good food choices, limited eating out or fast food and eliminate soda and juice from diet. Advised physical activity daily and offered encouragem ent to continue with positive changes. Schizophrenia 96652617 F 20.9 Currently on Paliperido ne ER 6mg tabClonaze kevin 1mg TabSees at [facility] in [place], [place] Adult heal th examination 050448466 Z00.00 Routine labs today- will contact patient with results Administra tion of influenza vaccine 88246057 Z23 Venereal d isease screening 691702688 Z11.3 Impacted c erumen of bilateral ears 5908348969 430197 H61.23 Start Debrox ear drops, place 5 drops in each ear twice daily [id number] LINDA ZHANG (Adult Med) [address] [place] [address] [phone] 07/15/2024 11:40:53 07/17/2024 15:06:24 Depression screening 484503761 Z13.31 PHQ9- {{Negative Positive Mild Moder ate Severe *}} (20 out of 27)Current ly following with BH at [facility] screening 329106689 Z13.39 GAD7- {{Negative Positive Mild Moder ate Severe *}} (21 out of 21)Current ly following with BH at [facility] Palpitations 53142162 R0 0.2 cardiology referral Hyperhidrosis 466177556 R61 start Drysol 1 applicatio n every day for 30 daysTSH and T4 drawn today Mass of chest wall 19274 4000 R22.2 1.4vbt7gc, round, hard mass on middle of chest wall palpated on PE today, painful on palpationu ltrasound ordered Chronic ob structive pulmonary disease 22997201 J44.9 start Symbicort 2 puffs twice dailyStart albuterol 2 puffs every 4 hours as needed [id number] LINDA ZHANG (Adult Med) [address] [place] [address] [phone] 0 08/12/2024 09:01:19 08/13/2024 14:06:42 Screening for malignant neoplasm of colon 168484715 Z12.11 Cologuard ordered Upper resp iratory infection 03808571 J06.9 Start Z-Martinez Chronic ob structive pulmonary disease 99537456 J44.9 c/w Symbicort 2 puffs twice dailyc/w albuterol 2 puffs every 4 hours as needed Depression screening 171 784129 Z13.31 PHQ9- {{Negative Positive Mild Moder ate Severe *}} (20 out of 27)Current ly following with BH at [facility] screening 528913793 Z13.39 GAD7- {{Negative Positive Mild Moder ate Severe *}} (16 out of 21)Current ly following with BH at [facility] Cough 62046028 R05.9 start delsym 10mg q12h Obesity 390920278 E66.9 BMI 32.0 Advised decreased portion sizes, good food choices, limited eating out or fast food and eliminate soda and juice from diet. Advised physical activity daily and offered encouragem ent to continue with positive changes. Health Concerns Section Related Observation LastModified by Organization Detai ls LastModified Time None Recorded Concern Status LastModified by Organization Details LastModified Time None Recorded Advance Directives Directive N: Payers Encounter Date Sequence Insurance Name Policy Number Policy Aguirre Covered Member ID Aguirre Member ID Guarantor Name 04/03/2024 1 [facility] ON OR AFTER 12/17/20 (MEDICAID REPLACEMENT - HMO) Edy Durhampurnima [id number] Edy Durhampurnima 07/15/2024 1 [facility] ON OR AFTER 12/17/20 (MEDICAID REPLACEMENT - HMO) Edy Durhampurnima [id number] Edy Genesis 08/12/2024 1 [facility] ON OR AFTER 12/17/20 (MEDICAID REPLACEMENT - HMO) Edy Durhampurnima [id number] Edy Durhampurnima Notes Date Note Type Note Provider Name and Address Organization Details Recorded Time 04/03/2024 text/html 48 y/o AA M here to establish care. Pt states he got out of intermediate in July of 2022 and has not been to a Dr since he has been out. States he was seen by a Dr. in intermediate. Meche Verduzco at [facility] in [place]- phone visit yesterday, last OV 3 weeks ago. Does have some episodes of dizziness when he is walking and feels like he is going to fallHas had some episodes that his BP is elevated and has gone to the ER, they monitor him and then let him go home systolic BP at 150 is the highest he has gotten at. He does have Fhx hypertension and is afraid that he might have it too. He wants to get STI screening. States his girlfriend has HSV and he wants to get tested for everything since it has been a while since he has been tested. ORAL DE LOS SANTOS PA-C Attn: Accounting,[address] [place], [address], [place] [facility] 04/03/2024 10:56:29 07/15/2024 text/html 49-year-old male here complaining of palpitations and episodes of tachycardia. Patient states that in 2013 he had a mild heart attack and has been testing done but was told something was irregular does not remember what. Testing and Cardiology was in [place] patient unsure of location or name of previous pneumatic tube repairer. Patient states that he has been having some palpitations and chest pain for a while now not exacerbated by physical activity, diet, or emotions. Patient denies diaphoresis during periods of pain. Patient describes pain as someone sticking a knife in his chest. Lasts only a couple of seconds. Patient is also complaining of a mass on his chest wall that has been there for about 10 years. Patient states he keeps forgetting to mention it to any of his doctors. Mass has been about the same size since he can recall it is very painful to touch. Patient is also complaining of sweaty feet. Patient is wanting refills on his inhalers. ORAL DE LOS SANTOS PA-C Attn: Accounting[address] [facility], [place], [address], [facility] 07/15/2024 16:53:44 08/12/2024 text/html 49-year-old male complaining of cough and wheezing for 2 weeks. Patient states as if he was sick and he has been feeling sick since. Has not been taking anything for it because he wanted to come in and be seen by his doctor. Denies fever and chills. States he has some CHACON to frontal area near eyes. Denies dizziness, CP, SOB. ORAL DE LOS SANTOS PA-C Attn: Accounting[address] [facility], [place], [address], [facility] 08/12/2024 10:07:23
[2024-09-11 22:53] LABS: Basophils Percent Auto 0.7 % (0.2-1.2); Eosinophils Absolute Auto 0.2 K/mm3 (0-0.3); Hematocrit 41.2 % (42.0-52.0); Hemoglobin 14.2 g/dL (14.0-18.0); Immature Granulocyte Absolute 0.01 K/mm3 (0.00-0.031); Immature Granulocyte Percent A 0.2 % (0-0.5); Lymphocytes Absolute Auto 1.94 K/mm3 (0.9-3.2); Mean Corpuscular HGB Conc 34.5 g/dl (32-36); Mean Corpuscular Hemoglobin 30.1 pg (26-34); Mean Corpuscular Volume 87.5 fl (80-100); Mean Platelet Volume 10.3 fl (7.4-10.4); Monocytes Absolute Auto 0.3 K/mm3 (0.1-0.6); Monocytes Percent Auto 8.1 % (2.6-8.5); Neutrophils Absolute Auto 1.7 K/mm3 (1.3-6.7); Platelet Count Result 230 k/mm3 (150-375); Red Blood Count 4.71 M/mm3 (4.6-6.20); Red Cell Distribution Width 13.1 % (11.5-14.5); White Blood Count 4.2 K/mm3 (4.5-10.0)
[2024-09-11 23:05] LABS: Acetaminophen < 10 ug/mL (10-30); Ethanol < 10 mg/dL (<10); Salicylate < 1.0 mg/dL (2-20)
[2024-09-11 23:06] LABS: Alanine Aminotransferase 24 U/L (6-50); Alkaline Phosphatase 122 U/L (38-126); Anion Gap 9 mmol/L (4-12); Aspartate Amino Transferase 24 U/L (17-59); Bilirubin,Total 0.4 mg/dL (0.2-1.3); Blood Urea Nitrogen 16 mg/dL (9-20); Calcium 8.9 mg/dL (8.4-10.2); Carbon Dioxide 21 mmol/L (22-30); Chloride 109 mmol/L (98-107); Estimated Glomerular Filt Rate > 60; Glucose 92 mg/dL (65-110); Potassium 3.9 mmol/L (3.4-5.0); Sodium 139 mmol/L (137-145)
[2024-09-11 23:11] LABS: Add Urine Microscopic? NO; Appearance Urine Clear (Clear); Bilirubin Urine Negative (Negative); Blood Urine Negative (Negative); Color Urine Yellow (Yellow); Glucose Urine UA Negative (Negative); Ketones Urine Negative (Negative); Leukocyte Esterase Ur Negative LEU/UL (Negative); Nitrate Urine Negative (Negative); Protein Urine Negative (Negative); Specific Grav Ur 1.014 (1.001-1.035); pH Urine 5.5 (5.0-9.0)
[2024-09-11 23:26] LABS: Amphetamine Screen Urine Negative (Negative); Barbiturate Screen Urine Negative (Negative); Benzodiazepines Screen Urine Negative (Negative); Cannabinoid Screen Urine Negative (Negative); Cocaine Screen Urine Negative (Negative); Methadone Screen Urine Negative (Negative); Opiate Screen Urine Negative (Negative); Phencyclidine Screen Urine Negative (Negative)
[2024-09-11 23:29] LABS: SARS-CoV-2 RNA PCR Negative (Negative)
--- NOTE | 2024-09-11 23:40 | PC.NURSE ---
Per EDP ABDOULAYE Palumbo the patient is medically cleared. CRISIS can be called.
--- NOTE | 2024-09-12 00:42 | PC.NURSE ---
Patient currently not in room. Notified EDP ABDOULAYE Rai and ED charge entry.
== END 2024-09-12 00:47 | disposition left against medical advice (07) ==
LOC: ANHED 22:32
PROVIDERS: Emergency Provider Physician Assistant; PCP Physician Assistant Medical
DX: F20.9 Schizophrenia, unspecified (principal); Z76.0 Encounter for issue of repeat prescription; T42.4X6A Underdosing of benzodiazepines, initial encounter; Z11.52 Encounter for screening for COVID-19; F31.9 Bipolar disorder, unspecified; F43.10 Post-traumatic stress disorder, unspecified
CPT/HCPCS: 36415; 80053; 80143; 80156; 80179; 80307; 81003; 82077; 84443; 85025; 87635; 99284